=== PATIENT | female | born 1995 | race Caucasian/White ===

== ENCOUNTER → 2017-02-12 | Outpatient (CLI) | payer SELFPAY | LOC: LAB 15:22 | PROVIDERS: ATTEND Emergency Medicine | DX: J02.9 Acute pharyngitis, unspecified (principal); J35.8 Other chronic diseases of tonsils and adenoids; R30.0 Dysuria | CPT/HCPCS: 36415; 86308; 87070; 87086 ==

== ENCOUNTER 2017-02-26 17:17 | Emergency (ER) | payer OTHER ==
--- NOTE | 2017-02-26 17:48 | ER Document Report ---
ED Medical Screen (RME) - General Chief Complaint: Abdominal Pain Stated Complaint: STOMACH PAIN Time Seen by Provider: 02/26/17 17:43 Notes: This 21-year-old female patient comes emergency room complaining of bilateral pelvic pain started today. She states this is endometriosis, although she has never been diagnosed with this. She feels "100%" certain of the diagnosis because her mother had endometriosis. She does not know when her last menstrual period was, she thinks she is starting now, however there is been no bleeding yet. I have greeted and performed a rapid initial assessment of this patient. A comprehensive ED assessment and evaluation of the patient, analysis of test results and completion of the medical decision making process will be conducted by additional ED providers. TRAVEL OUTSIDE OF THE [place] IN LAST 30 DAYS: No - Related Data Allergies/Adverse Reactions: Amphetamine Aspartate * [From Adderall] Allergy (Verified 02/26/17 17:26) hives, periorbital swelling amphetamine sulfate [From Adderall] Allergy (Verified 02/26/17 17:26) hives, periorbital swelling dextroamphetamine [From Adderall] Allergy (Verified 02/26/17 17:26) hives, periorbital swelling methylphenidate HCl [From Ritalin] Allergy (Verified 02/26/17 17:26) Past Medical History Renal/ Medical History: Denies: Hx Peritoneal Dialysis Psychiatric Medical History: Reports: Hx Attention Deficit Hyperactivity Disorder - Immunizations Immunizations up to date: Yes Hx Diphtheria, Pertussis, Tetanus Vaccination: Yes Physical Exam - Vital signs Vitals: Temp Pulse Resp BP Pulse Ox 97.7 F 84 20 119/90 H 100 02/26/17 17:26 02/26/17 17:26 02/26/17 17:26 02/26/17 17:26 02/26/17 17:26 Course - Vital Signs Vital signs: Temp Pulse Resp BP Pulse Ox 97.7 F 84 20 119/90 H 100 02/26/17 17:26 02/26/17 17:26 02/26/17 17:26 02/26/17 17:26 02/26/17 17:26
[2017-02-26 18:10] LABS: AMORPHOUS SEDIMENT,URINE TRACE /HPF; APPEARANCE,URINE SLIGHTLY-CLOUDY; BILIRUBIN,URINE NEGATIVE (NEGATIVE); GLUCOSE, URINE NEGATIVE (NEGATIVE); KETONES,URINE NEGATIVE (NEGATIVE); LEUKOCYTE ESTERASE,URINE TRACE (NEGATIVE); NITRITE,URINE NEGATIVE (NEGATIVE); PROTEIN,URINE NEGATIVE (NEGATIVE)
[2017-02-26] MEDS ORDERED: KETOROLAC TROMETHAMINE INJ/PF 30 MG/1 ML SDV IM ONE (18:34)
--- NOTE | 2017-02-26 18:35 | ER Document Report ---
ED General - General Chief Complaint: Abdominal Pain Stated Complaint: STOMACH PAIN Time Seen by Provider: 02/26/17 17:43 Notes: Patient is a 21-year-old female without past medical history, no prior surgical history who presents with 24 hours of lower abdominal cramping. Patient describes it as intermittent, cramping, moderate to severe pain. Nothing improves or worsens her pain. Has been associated with nausea without vomiting. No vaginal bleeding or discharge although she states that this is typically how her menstrual cycle starts. Nothing is new or different about her pain today relative to prior menstrual cycles. She has not seen her primary care [facility] regarding today's concerns. She does not use anything to menstrual cycle. She has not had any fever or constitutional symptoms. TRAVEL OUTSIDE OF THE [place] IN LAST 30 DAYS: No - Related Data Allergies/Adverse Reactions: Amphetamine Aspartate * [From Adderall] Allergy (Verified 02/26/17 17:26) hives, periorbital swelling amphetamine sulfate [From Adderall] Allergy (Verified 02/26/17 17:26) hives, periorbital swelling dextroamphetamine [From Adderall] Allergy (Verified 02/26/17 17:26) hives, periorbital swelling methylphenidate HCl [From Ritalin] Allergy (Verified 02/26/17 17:26) Past Medical History - General Information source: Patient - Social History Smoking Status: Current Every Day Smoker Chew tobacco use (# tins/day): No Frequency of alcohol use: None Drug Abuse: Marijuana Lives with: Spouse/Significant other Family History: Arthritis, CAD, CVA, DM, Hyperlipidemia, Hypertension, Malignancy Renal/ Medical History: Denies: Hx Peritoneal Dialysis Psychiatric Medical History: Reports: Hx Attention Deficit Hyperactivity Disorder Surgical Hx: Negative - Immunizations Immunizations up to date: Yes Hx Diphtheria, Pertussis, Tetanus Vaccination: Yes Hx Pneumococcal Vaccination: 05/08/00 Review of Systems - Review of Systems Notes: Constitutional: Negative for fever. HENT: Negative for sore throat. Eyes: Negative for visual changes. Cardiovascular: Negative for chest pain. Respiratory: Negative for shortness of breath. Gastrointestinal: Positive for abdominal pain and nausea Genitourinary: Negative for dysuria. Musculoskeletal: Negative for back pain. Skin: Negative for rash. Neurological: Negative for headaches, weakness or numbness. 10 point ROS negative except as marked above and in HPI. Physical Exam - Vital signs Vitals: Temp Pulse Resp BP Pulse Ox 97.7 F 84 20 119/90 H 100 02/26/17 17:26 02/26/17 17:26 02/26/17 17:26 02/26/17 17:26 02/26/17 17:26 Interpretation: Normal Notes: PHYSICAL EXAMINATION: GENERAL: Well-appearing, well-nourished and in no acute distress. HEAD: Atraumatic, normocephalic. EYES: Pupils equal round and reactive to light, extraocular movements intact, sclera anicteric, conjunctiva are normal. ENT: nares patent, oropharynx clear without exudates. Moist mucous membranes. NECK: Normal range of motion, supple without lymphadenopathy LUNGS: Breath sounds clear to auscultation bilaterally and equal. No wheezes rales or rhonchi. HEART: Regular rate and rhythm without murmurs ABDOMEN: Soft, nontender, normoactive bowel sounds. No guarding, no rebound. No masses appreciated. EXTREMITIES: Normal range of motion, no pitting or edema. No cyanosis. NEUROLOGICAL: No focal neurological deficits. Moves all extremities spontaneously and on command. PSYCH: Normal mood, normal affect. SKIN: Warm, Dry, normal turgor, no rashes or lesions noted. Course - Re-evaluation Re-evalutation: 02/27/17 01:33 Presentation of generalized, intermittent abdominal pain starting with onset of her menstrual cycle today. Patient states that the pain is the same every single time she starts a menstrual period and it is not new or different today or during this menstrual period. Abdominal exam is benign without any focal tenderness. Vitals are normal at the time of arrival. Urinalysis unremarkable and she is not . Patient is overall very well in appearance. Based on clinical history and examination I do not suspect an acute appendicitis, tubo- ovarian abscess, related pathology, pelvic inflammatory disease, mesenteric ischemia, or pyelonephritis. At this time will discharge with return precautions and follow-up recommendations. Verbal discharge instructions given a the bedside and opportunity for questions given. Medication warnings reviewed. Patient is in agreement with this plan and has verbalized understanding of return precautions and the need for primary care follow-up in the next 24-72 hours. - Vital Signs Vital signs: Temp Pulse Resp BP Pulse Ox 97.6 F 80 20 117/82 100 02/26/17 18:49 02/26/17 18:49 02/26/17 18:49 02/26/17 18:49 02/26/17 18:49 - Laboratory Laboratory results interpreted by me: 02/26/17 02/26/17 17:57 17:57 Urine Blood LARGE H Urine Urobilinogen 2.0 H Ur Leukocyte Esterase TRACE H N.gonorrhoeae DNA (PCR) DETECTED H Discharge - Discharge Clinical Impression: Pelvic cramping Condition: Good Disposition: HOME, SELF-CARE Additional Instructions: Please follow-up with the health department or women's clinic for consideration of placement of an intrauterine device or an alternative form of control to regulate your cycle and prevent recurrent pelvic pain during your menstrual periods. Please return for worsening pain, persistent vomiting, fever greater than 101F, or any other symptoms that are worrisome to you. Referrals: DANIELLA CALLE FNP-C [Primary Care Provider] - Follow up as needed
[2017-02-26 18:52] VITALS: BP 117/82
[2017-02-26 19:45] LABS: CHLAM PCR NOT DETECTED (NOT DETECT)
== END 2017-02-26 18:50 | disposition home or self-care (01) ==
LOC: ER 17:17
DX: R10.2 Pelvic and perineal pain (principal); R10.9 Unspecified abdominal pain; R11.0 Nausea; F17.200 Nicotine dependence, unspecified, uncomplicated
CPT/HCPCS: 99284; 81025; 81001; 87491; 87591; J1885

== ENCOUNTER 2017-06-13 10:13 | Emergency (ER) | payer OTHER ==
[2017-06-13] MEDS ORDERED: NORMAL SALINE 1000 ML 1,000 ML IV ONE (10:43)
[2017-06-13] MEDS ORDERED: ACETAMINOPHEN 325 MG TABLET PO ONE (10:44)
--- NOTE | 2017-06-13 10:46 | ER Document Report ---
ED GI/ - General Chief Complaint: Abdominal Pain Stated Complaint: ABDOMINAL PAIN Time Seen by Provider: 06/13/17 10:36 Mode of Arrival: Ambulatory Information source: Patient Notes: Patient presents complaining of abdominal pain off and on. Patient is presently 7 weeks . Patient denies any nausea, vomiting or diarrhea. Patient denies any urinary symptoms. Patient denies any fever. Patient does report some mild vaginal discharge. Last bowel movement was yesterday. TRAVEL OUTSIDE OF THE [place] IN LAST 30 DAYS: No - HPI Patient complains to provider of: Abdominal pain, , Vaginal discharge. No: Vomiting Onset: This morning Timing/Duration: Waxing and waning Pain Level: 4 Location: Other - Generalized Vaginal bleeding (Compared to normal period): None Menstrual period history: Sexual history: Active Associated symptoms: Vaginal discharge. denies: Constipation, Diarrhea, Dysuria , Loss of appetite, Nausea, Shortness of breath, Urinary hesitancy, Urinary frequency, Urinary retention, Urinary urgency Exacerbated by: Denies Relieved by: Denies Recently seen / treated by doctor: No - Related Data Allergies/Adverse Reactions: Amphetamine Aspartate * [From Adderall] Allergy (Verified 06/13/17 10:13) hives, periorbital swelling amphetamine sulfate [From Adderall] Allergy (Verified 06/13/17 10:13) hives, periorbital swelling dextroamphetamine [From Adderall] Allergy (Verified 06/13/17 10:13) hives, periorbital swelling methylphenidate HCl [From Ritalin] Allergy (Verified 06/13/17 10:13) Past Medical History - General Information source: Patient Last Menstrual Period: 7 weeks - Social History Smoking Status: Current Every Day Smoker Chew tobacco use (# tins/day): No Smoking Education Provided: Yes Frequency of alcohol use: None Drug Abuse: None Occupation: None Lives with: Family Family History: Arthritis, CAD, CVA, DM, Hyperlipidemia, Hypertension, Malignancy Patient has suicidal ideation: No Patient has homicidal ideation: No Renal/ Medical History: Denies: Hx Peritoneal Dialysis Psychiatric Medical History: Reports: Hx Attention Deficit Hyperactivity Disorder Surgical Hx: Negative - Immunizations Immunizations up to date: Yes Hx Diphtheria, Pertussis, Tetanus Vaccination: Yes Hx Pneumococcal Vaccination: 05/08/00 Review of Systems - Review of Systems Constitutional: No symptoms reported. denies: Fever EENT: No symptoms reported Cardiovascular: No symptoms reported. denies: Chest pain Respiratory: No symptoms reported. denies: Cough, Short of breath Gastrointestinal: Abdominal pain. denies: Diarrhea, Nausea, Vomiting Genitourinary: No symptoms reported. denies: Dysuria, Flank pain Female Genitourinary: , Vaginal discharge. denies: Vaginal bleeding Musculoskeletal: No symptoms reported. denies: Back pain Skin: No symptoms reported Hematologic/Lymphatic: No symptoms reported Neurological/Psychological: No symptoms reported Physical Exam - Vital signs Vitals: Temp Pulse Resp BP Pulse Ox 97.8 F 100 20 118/74 98 06/13/17 10:22 06/13/17 10:22 06/13/17 10:22 06/13/17 10:22 06/13/17 10:22 - General General appearance: Appears well, Alert In distress: None - HEENT Head: Normocephalic Eyes: Normal Conjunctiva: Normal Ears: Normal External canal: Normal Tympanic membrane: Normal Nasal: Normal Mouth/Lips: Normal Mucous membranes: Normal, Dry Pharynx: Normal. No: Erythema, Tonsillar hypertrophy Neck: Normal, Supple. No: Lymphadenopathy, Meningismus - Respiratory Respiratory status: No respiratory distress Chest status: Nontender Breath sounds: Normal. No: Rales, Rhonchi, Stridor, Wheezing Chest palpation: Normal - Cardiovascular Rhythm: Regular Heart sounds: S1 appreciated, S2 appreciated Murmur: No - Abdominal Inspection: Normal Distension: No distension Bowel sounds: Normal Tenderness: Tender - Diffuse generalized tenderness, no focal area of tenderness. No: Guarding Organomegaly: No organomegaly - Back Back: Normal, Nontender. No: CVA tenderness - Extremities General upper extremity: Normal inspection, Normal strength General lower extremity: Normal inspection, Normal strength - Neurological Neuro grossly intact: Yes Cognition: Normal [place] Coma Scale Eye Opening: Spontaneous [place] Coma Scale Verbal: Oriented [place] Coma Scale Motor: Obeys Commands [place] Coma Scale Total: 15 - Psychological Associated symptoms: Normal affect, Normal mood - Skin Skin Temperature: Warm Skin Moisture: Dry Skin Color: Normal Course - Re-evaluation Re-evalutation: 06/13/17 14:25 Patient's abdomen soft, nontender. Patient states that her abdominal pain has improved. Patient without any nausea, vomiting or diarrhea. Patient without any vaginal bleeding. Patient presents with abdominal pain without signs of peritonitis or other life-threatening or serious etiology. Patient appears stable for discharge and has been instructed to return immediately if the symptoms worsen in any way, or in 8-12 hours if not improved for reevaluation. The patient has been instructed to return if the symptoms worsen or change in any way. - Vital Signs Vital signs: Temp Pulse Resp BP Pulse Ox 99 F 66 16 100/41 L 99 06/13/17 14:42 06/13/17 14:42 06/13/17 14:42 06/13/17 14:42 06/13/17 14:42 - Laboratory Result Diagrams: 06/13/17 11:08 06/13/17 11:08 Laboratory results interpreted by me: 06/13/17 06/13/17 11:08 11:08 WBC 11.5 H Eosinophils % 7.1 H Absolute Eosinophils 0.8 H Beta HCG, Quant 057558.00 H Labs- Entire Visit 06/13/17 06/13/17 06/13/17 11:08 11:08 11:08 WBC 11.5 H RBC 4.28 Hgb 13.4 Hct 40.1 MCV 94 MCH 31.3 MCHC 33.5 RDW 12.6 Plt Count 248 Seg Neutrophils % 70.0 Lymphocytes % 13.8 Monocytes % 8.6 Eosinophils % 7.1 H Basophils % 0.5 Absolute Neutrophils 8.1 Absolute Lymphocytes 1.6 Absolute Monocytes 1.0 Absolute Eosinophils 0.8 H Absolute Basophils 0.1 Sodium 138.9 Potassium 4.2 Chloride 104 Carbon Dioxide 24 Anion Gap 11 BUN 7 Creatinine 0.65 Est GFR ( Amer) > 60 Est GFR (Non-Af Amer) > 60 Glucose 77 Calcium 9.7 Total Bilirubin 0.4 Direct Bilirubin 0.1 Neonat Total Bilirubin Not Reportable Neonat Direct Bilirubin Not Reportable Neonat Indirect Bili Not Reportable AST 23 ALT 35 Alkaline Phosphatase 55 Total Protein 6.7 Albumin 4.2 Lipase 47.6 Beta HCG, Quant 561155.00 H Total Beta HCG POSITIVE Urine Color Urine Appearance Urine pH Ur Specific [place] Urine Protein Urine Glucose (UA) Urine Ketones Urine Blood Urine Nitrite Urine Bilirubin Urine Urobilinogen Ur Leukocyte Esterase Urine WBC (Auto) Urine RBC (Auto) Squamous Epi Cells Auto Urine Mucus (Auto) Urine Ascorbic Acid Trichomonas (Wet Prep) Vaginal WBC Vaginal RBC Vaginal Yeast Blood Type O POSITIVE Rhogam Indicated RHOGAM NOT INDICATED 06/13/17 06/13/17 11:52 12:49 WBC RBC Hgb Hct MCV MCH MCHC RDW Plt Count Seg Neutrophils % Lymphocytes % Monocytes % Eosinophils % Basophils % Absolute Neutrophils Absolute Lymphocytes Absolute Monocytes Absolute Eosinophils Absolute Basophils Sodium Potassium Chloride Carbon Dioxide Anion Gap BUN Creatinine Est GFR ( Amer) Est GFR (Non-Af Amer) Glucose Calcium Total Bilirubin Direct Bilirubin Neonat Total Bilirubin Neonat Direct Bilirubin Neonat Indirect Bili AST ALT Alkaline Phosphatase Total Protein Albumin Lipase Beta HCG, Quant Total Beta HCG Urine Color YELLOW Urine Appearance SLIGHTLY-CLOUDY Urine pH 7.0 Ur Specific [place] 1.017 Urine Protein NEGATIVE Urine Glucose (UA) NEGATIVE Urine Ketones NEGATIVE Urine Blood NEGATIVE Urine Nitrite NEGATIVE Urine Bilirubin NEGATIVE Urine Urobilinogen NEGATIVE Ur Leukocyte Esterase NEGATIVE Urine WBC (Auto) 2 Urine RBC (Auto) 1 Squamous Epi Cells Auto 2 Urine Mucus (Auto) RARE Urine Ascorbic Acid NEGATIVE Trichomonas (Wet Prep) NO TRICHOMONAS SEEN Vaginal WBC NO WBCS SEEN Vaginal RBC NO RBCS SEEN Vaginal Yeast NO YEAST SEEN Blood Type Rhogam Indicated - Diagnostic Test Radiology reviewed: Reports reviewed Discharge - Discharge Clinical Impression: Abdominal pain affecting Condition: Stable Disposition: HOME, SELF-CARE Instructions: Acetaminophen, Pelvic Pain in ([facility]) Additional Instructions: Return immediately for any new or worsening symptoms Followup with your primary care provider, call tomorrow to make a followup appointment Follow-up with your [facility] provider for recheck Forms: Smoking Cessation Education, Return to Work Referrals: [facility] [Provider Group] - Follow up tomorrow
[2017-06-13 11:26] LABS: ABSOLUTE BASOPHILS # (AUTO) 0.1 10^3/uL (0.0-0.2); ABSOLUTE EOSINOPHILS # (AUTO) 0.8 10^3/uL (0.0-0.6); ABSOLUTE LYMPHOCYTES (AUTO) 1.6 10^3/uL (0.5-4.7); ABSOLUTE NEUT (AUTO) 8.1 10^3/uL (1.7-8.2); BASOPHILS % (AUTO) 0.5 % (0-2); EOSINOPHILS % (AUTO) 7.1 % (0-6); HEMATOCRIT 40.1 % (36.0-47.0); HEMOGLOBIN 13.4 g/dL (12.0-15.5); LYMPHOCYTES % (AUTO) 13.8 % (13-45); MEAN CORPUSCULAR HEMOGLOBIN 31.3 pg (27.0-33.4); MEAN CORPUSCULAR HGB CONC 33.5 g/dL (32.0-36.0); MEAN CORPUSCULAR VOLUME 94 fl (80-97); MONOCYTES % (AUTO) 8.6 % (3-13); PLATELET COUNT 248 10^3/uL (150-450); RED BLOOD COUNT 4.28 10^6/uL (3.72-5.28); RED CELL DISTRIBUTION WIDTH 12.6 % (11.5-14.0); TOTAL CELLS COUNTED % (AUTO) 100 %; WHITE BLOOD COUNT 11.5 10^3/uL (4.0-10.5)
[2017-06-13 11:53] LABS: ALANINE AMINOTRANSFERASE 35 U/L (9-52); ALBUMIN 4.2 g/dL (3.5-5.0); ALKALINE PHOSPHATASE 55 U/L (38-126); ANION GAP 11 (5-19); ASPARTATE AMINO TRANSFERASE 23 U/L (14-36); BILIRUBIN,DIRECT 0.1 mg/dL (0.0-0.4); BILIRUBIN,TOTAL 0.4 mg/dL (0.2-1.3); BLOOD UREA NITROGEN 7 mg/dL (7-20); CALCIUM 9.7 mg/dL (8.4-10.2); CARBON DIOXIDE 24 mmol/L (22-30); CHLORIDE 104 mmol/L (98-107); GLUCOSE 77 mg/dL (75-110); LIPASE 47.6 U/L (23-300); POTASSIUM 4.2 mmol/L (3.6-5.0); SODIUM 138.9 mmol/L (137-145); TOTAL PROTEIN 6.7 g/dL (6.3-8.2)
[2017-06-13 12:08] LABS: APPEARANCE,URINE SLIGHTLY-CLOUDY; BILIRUBIN,URINE NEGATIVE (NEGATIVE); COLOR,URINE YELLOW; GLUCOSE, URINE NEGATIVE (NEGATIVE); KETONES,URINE NEGATIVE (NEGATIVE); LEUKOCYTE ESTERASE,URINE NEGATIVE (NEGATIVE); NITRITE,URINE NEGATIVE (NEGATIVE); PROTEIN,URINE NEGATIVE (NEGATIVE); URINE SPECIFIC GRAVITY 1.017; UROBILINOGEN,URINE NEGATIVE mg/dL (<2.0)
--- NOTE | 2017-06-13 12:37 | RADIOLOGY REPORT (SQ) ---
EXAM DESCRIPTION: U/S OB TRANSVAG W/DOPPLER COMPLETED DATE/TIME: 06/13/2017 12:28 pm REASON FOR STUDY: abd pain COMPARISON: None. TECHNIQUE: Transvaginal static and realtime grayscale images acquired of the pelvis. Additional servando cted spectral and color Doppler images recorded. All images stored on PACs. bHCG: Not available. LIMITATIONS: None. FINDINGS: FETUS: Living intrauterine . EGA: 7 weeks 5 days ARMAND: 01/25/2018 FHR: 1 and 71 beats per minute. SUBCHORIONIC BLEED: No. SIZE OF BLEED: Not applicable. UTERUS: No masses. No anomalies. CERVICAL LENGTH: 3.8 Closed. RIGHT ADNEXA: Normal ovary with normal vascular flow. No adnexal free fluid. No adnexal masses. LEFT ADNEXA: Normal ovary with normal vascular flow. No adnexal free fluid. No adnexal masses. FREE FLUID: None. OTHER: No other significant finding. IMPRESSION: LIVING INTRAUTERINE . EGA 7 weeks 5 days Trimester of : First - 0 to 13 weeks. TECHNICAL DOCUMENTATION: JOB ID: [id number] [employer]- All Rights Reserved
[2017-06-13 13:00] LABS: RBCS (WET MOUNT) NO RBCS SEEN; T.VAGINALIS (WET MOUNT) NO TRICHOMONAS SEEN; WBCS (WET MOUNT) NO WBCS SEEN; YEAST (WET MOUNT) NO YEAST SEEN
[2017-06-13 14:31] LABS: CHLAM PCR NOT DETECTED (NOT DETECT); GON PCR NOT DETECTED (NOT DETECT)
[2017-06-13 14:44] VITALS: BP 100/41
== END 2017-06-13 14:42 | disposition home or self-care (01) ==
LOC: ER 10:13
DX: O26.891 Other specified pregnancy related conditions, first trimester (principal); R10.84 Generalized abdominal pain; N89.8 Other specified noninflammatory disorders of vagina; O99.331 Smoking (tobacco) complicating pregnancy, first trimester; Z3A.01 Less than 8 weeks gestation of pregnancy; Z88.8 Allergy status to other drugs, medicaments and biological substances; Z88.6 Allergy status to analgesic agent
CPT/HCPCS: 99284; 96360; 86900; 86901; 36415; 87210; 84702; 83690; 85025; 80053; 81001; 87491; 87591; 76817; 93976; J7030

== ENCOUNTER 2017-07-31 01:00 | Emergency (ER) | payer OTHER ==
[2017-07-31] MEDS ORDERED: NORMAL SALINE 1000 ML 1,000 ML IV ONE (01:10)
--- NOTE | 2017-07-31 02:15 | ER Document Report ---
ED General - General Chief Complaint: Flu Symptoms Stated Complaint: SORE THROAT Time Seen by Provider: 07/31/17 01:10 Notes: Patient is a 21 year old female currently 15 weeks without past medical history who presents with 2 days of sore throat, cough, nasal congestion , fever, and vomiting. Patient reports that she has been taking Tylenol at home with minimal improvement of her symptoms. Nothing worsens her symptoms. Multiple sick contacts. She has not had any diarrhea, vaginal bleeding, vaginal discharge or dysuria. No flank tenderness. She denies any shortness of breath and headache, neck pain or syncope. She has not seen her primary care doctor regarding today's concerns. Symptoms have been overall unchanged since onset. TRAVEL OUTSIDE OF THE [place] IN LAST 30 DAYS: No - Related Data Allergies/Adverse Reactions: Amphetamine Aspartate * [From Adderall] Allergy (Verified 07/31/17 01:02) hives, periorbital swelling amphetamine sulfate [From Adderall] Allergy (Verified 07/31/17 01:02) hives, periorbital swelling dextroamphetamine [From Adderall] Allergy (Verified 07/31/17 01:02) hives, periorbital swelling methylphenidate HCl [From Ritalin] Allergy (Verified 07/31/17 01:02) Past Medical History - General Information source: Patient - Social History Smoking Status: Never Smoker Chew tobacco use (# tins/day): No Frequency of alcohol use: None Drug Abuse: None Lives with: Parents Family History: Arthritis, CAD, CVA, DM, Hyperlipidemia, Hypertension, Malignancy Patient has suicidal ideation: No Patient has homicidal ideation: No Renal/ Medical History: Denies: Hx Peritoneal Dialysis Psychiatric Medical History: Reports: Hx Attention Deficit Hyperactivity Disorder - Immunizations Immunizations up to date: Yes Hx Diphtheria, Pertussis, Tetanus Vaccination: Yes Hx Pneumococcal Vaccination: 05/08/00 Review of Systems - Review of Systems Notes: Constitutional: Positive for fever. HENT: Positive for sore throat. Eyes: Negative for visual changes. Cardiovascular: Negative for chest pain. Respiratory: Positive for cough Gastrointestinal: Negative for abdominal pain, positive for vomiting Genitourinary: Negative for dysuria. Musculoskeletal: Negative for back pain. Skin: Negative for rash. Neurological: Negative for headaches, weakness or numbness. 10 point ROS negative except as marked above and in HPI. Physical Exam - Vital signs Vitals: Temp Pulse BP Pulse Ox 98.2 F 120 H 104/59 L 97 07/31/17 01:04 07/31/17 01:04 07/31/17 01:04 07/31/17 01:04 Interpretation: Tachycardic Notes: PHYSICAL EXAMINATION: GENERAL: Well-appearing, well-nourished and in no acute distress. HEAD: Atraumatic, normocephalic. EYES: Pupils equal round and reactive to light, extraocular movements intact, sclera anicteric, conjunctiva are normal. ENT: nares patent, mild bilateral tonsillar erythema and hypertrophy. Uvula midline. No tonsillar exudates. Moderately dry mucous membranes. NECK: Normal range of motion, supple without lymphadenopathy LUNGS: Breath sounds clear to auscultation bilaterally and equal. No wheezes rales or rhonchi. HEART: Regular tachycardia without murmurs ABDOMEN: Soft, nontender, normoactive bowel sounds. No guarding, no rebound. No masses appreciated. EXTREMITIES: Normal range of motion, no pitting or edema. No cyanosis. NEUROLOGICAL: No focal neurological deficits. Moves all extremities spontaneously and on command. PSYCH: Normal mood, normal affect. SKIN: Warm, Dry, normal turgor, no rashes or lesions noted. Course - Re-evaluation Re-evalutation: 07/31/17 02:14 Patient presents with cough, vomiting, diarrhea, and fever at home consistent with a flulike illness although we are unable to confirm with the testing due to lack of availability. Clinical history and exam is not consistent with an acute bacterial meningitis, encephalitis, pneumonia, there is no evidence of a cellulitis on examination. Patient likewise denies any urinary symptoms. Chest x-ray is clear without any evidence of an acute pneumonia. Patient does not have any focal abdominal tenderness to suggest an acute biliary pathology, acute appendicitis, acute mesenteric ischemia, bowel obstruction, bowel, or any other life-threatening acute intra-abdominal pathology as the etiology of the fever and additional symptoms today. Patient is currently but denies any vaginal bleeding or discharge. Labs are otherwise unremarkable. Patient is tolerated oral intake without difficulty. Vitals at time of reassessment are within normal limits. I have had a risks and benefits conversation with the patient and her mother about proceeding with Tamiflu. After reviewing the limited efficacy of this medication as well as the side effect profile, the patient and her mother have elected not to proceed with this medication. At this time will discharge with return precautions and follow-up recommendations. Verbal discharge instructions given a the bedside and opportunity for questions given. Medication warnings reviewed. Patient is in agreement with this plan and has verbalized understanding of return precautions and the need for primary care follow-up in the next 24-72 hours. - Vital Signs Vital signs: Temp Pulse Resp BP Pulse Ox 98.2 F 120 H 104/59 L 97 07/31/17 01:04 07/31/17 01:04 07/31/17 01:04 07/31/17 01:04 - Laboratory Result Diagrams: 07/31/17 02:30 07/31/17 02:30 Laboratory results interpreted by me: 07/31/17 02:30 RBC 3.39 L Hgb 11.0 L Hct 32.2 L Lymphocytes % 7.4 L - Diagnostic Test Radiology reviewed: Image reviewed, Reports reviewed Radiology results interpreted by me: 07/31/17 02:57 Chest x-ray: No acute infiltrate pneumothorax Discharge - Discharge Clinical Impression: Cough, Sore throat (viral), Viral upper respiratory infection Nausea and vomiting Qualifiers: Vomiting type: unspecified Vomiting Intractability: non-intractable Qualified Code(s): R11.2 - Nausea with vomiting, unspecified Condition: Good Disposition: HOME, SELF-CARE Additional Instructions: Your symptoms are likely due to a viral infection either influenza or similar virus. The only treatment at this time is supportive care including drinking plenty of fluids, Tylenol, as well as nausea medicines which you will be sent home with. Your symptoms will likely last for 7-10 days. Please return to the emergency department immediately if you become confused, have persistent vomiting, pass out, have severe headache, or have any other symptoms that are worrisome to you. Follow-up with your primary care doctor in the next several days. Prescriptions: Dextromethorphan HBr [Cough Relief] 15 mg PO Q6HP PRN #30 ml PRN Reason: Metoclopramide HCl [Reglan 10 mg Tablet] 10 mg PO Q6HP PRN #15 tablet PRN Reason: Referrals: ARLENE MEDINA MD [Primary Care Provider] - Follow up as needed
[2017-07-31 02:42] LABS: ABSOLUTE EOSINOPHILS # (AUTO) 0.1 10^3/uL (0.0-0.6); ABSOLUTE LYMPHOCYTES (AUTO) 0.5 10^3/uL (0.5-4.7); ABSOLUTE MONOCYTES (AUTO) 0.8 10^3/uL (0.1-1.4); BASOPHILS % (AUTO) 0.3 % (0-2); EOSINOPHILS % (AUTO) 1.8 % (0-6); HEMATOCRIT 32.2 % (36.0-47.0); LYMPHOCYTES % (AUTO) 7.4 % (13-45); MEAN CORPUSCULAR HEMOGLOBIN 32.3 pg (27.0-33.4); MEAN CORPUSCULAR VOLUME 95 fl (80-97); MONOCYTES % (AUTO) 12.9 % (3-13); PLATELET COUNT 182 10^3/uL (150-450); RED BLOOD COUNT 3.39 10^6/uL (3.72-5.28); RED CELL DISTRIBUTION WIDTH 13.7 % (11.5-14.0); SEGMENTED NEUTROPHILS % (AUTO) 77.6 % (42-78); TOTAL CELLS COUNTED % (AUTO) 100 %; WHITE BLOOD COUNT 6.4 10^3/uL (4.0-10.5)
--- NOTE | 2017-07-31 02:54 | RADIOLOGY REPORT (SQ) ---
EXAM DESCRIPTION: CHEST SINGLE VIEW CLINICAL HISTORY: sob COMPARISON: None. FINDINGS: Single frontal view of the chest. The cardiomediastinal silhouette has normal size and contour. No consolidation, pneumothorax, or pleural effusion. No displaced rib fractures identified. Upper abdominal soft tissues are unremarkable. IMPRESSION: 1. No acute pulmonary process identified.
[2017-07-31] MEDS ORDERED: ACETAMINOPHEN 325 MG TABLET PO ONE (02:55)
[2017-07-31 03:10] VITALS: BP 112/70
== END 2017-07-31 03:15 | disposition home or self-care (01) ==
LOC: ER 01:00
DX: O26.892 Other specified pregnancy related conditions, second trimester (principal); J02.9 Acute pharyngitis, unspecified; R05 Cough; R09.81 Nasal congestion; R50.9 Fever, unspecified; R11.10 Vomiting, unspecified; Z3A.15 15 weeks gestation of pregnancy
CPT/HCPCS: 99284; 96360; 36415; 87070; 87880; 85025; 71045; J7030

== ENCOUNTER 2017-09-25 22:38 | Outpatient (CLI) | payer OTHER ==
[2017-09-25 23:19] LABS: APPEARANCE,URINE CLEAR; BILIRUBIN,URINE NEGATIVE (NEGATIVE); COLOR,URINE YELLOW; GLUCOSE, URINE NEGATIVE (NEGATIVE); KETONES,URINE NEGATIVE (NEGATIVE); LEUKOCYTE ESTERASE,URINE NEGATIVE (NEGATIVE); NITRITE,URINE NEGATIVE (NEGATIVE); PROTEIN,URINE NEGATIVE (NEGATIVE); URINE SPECIFIC GRAVITY 1.011; UROBILINOGEN,URINE NEGATIVE mg/dL (<2.0)
[2017-09-25 23:33] LABS: URINE AMPHETAMINES SCREEN NEGATIVE; URINE BARBITURATES SCREEN NEGATIVE; URINE BENZODIAZEPINES SCREEN NEGATIVE; URINE COCAINE SCREEN NEGATIVE; URINE METHADONE SCREEN NEGATIVE; URINE PHENCYCLIDINE SCREEN NEGATIVE
[2017-09-25 23:56] LABS: URINE MARIJUANA (THC) SCREEN UNCONFIRMED POSITIVE
[2017-09-26] MEDS ORDERED: HYDROXYZINE PAMOATE 50 MG CAPSULE ONE (00:20)
[2017-09-26] MEDS ORDERED: RINGERS SOLUTION,LACTATED 1,000 ML IV PRN (00:24)
== END 2017-09-26 01:16 | disposition home or self-care (01) ==
LOC: LC 22:38 → EDSTATUS 22:43 → LC 09-26 01:16
PROVIDERS: ATTEND Obstetrics & Gynecology
PROC: 4A1HXCZ Monitoring of Products of Conception, Cardiac Rate, External Approach (ICD-10-PCS; principal; 2017-09-25)
DX: O47.02 False labor before 37 completed weeks of gestation, second trimester (principal); Z3A.22 22 weeks gestation of pregnancy
CPT/HCPCS: 59899; 81001; 80307; G0480 ×2

== ENCOUNTER 2018-01-06 21:23 | Outpatient (CLI) | payer OTHER ==
[2018-01-06 22:07] LABS: APPEARANCE,URINE CLEAR; BILIRUBIN,URINE NEGATIVE (NEGATIVE); COLOR,URINE STRAW; GLUCOSE, URINE NEGATIVE (NEGATIVE); KETONES,URINE NEGATIVE (NEGATIVE); LEUKOCYTE ESTERASE,URINE TRACE (NEGATIVE); NITRITE,URINE NEGATIVE (NEGATIVE); PROTEIN,URINE NEGATIVE (NEGATIVE); URINE SPECIFIC GRAVITY 1.011; UROBILINOGEN,URINE NEGATIVE mg/dL (<2.0)
[2018-01-06 22:30] LABS: URINE AMPHETAMINES SCREEN NEGATIVE; URINE BARBITURATES SCREEN NEGATIVE; URINE BENZODIAZEPINES SCREEN NEGATIVE; URINE COCAINE SCREEN NEGATIVE; URINE MARIJUANA (THC) SCREEN NEGATIVE; URINE METHADONE SCREEN NEGATIVE; URINE PHENCYCLIDINE SCREEN NEGATIVE
--- NOTE | 2018-01-06 23:03 | Non Stress Test Report ---
Non Stress Test Datetime Report Generated by CPN: 01/06/2018 23:03 DEMOGRAPHIC EGA NST: 37.3 INDICATION Indication for Study (NST) Other: LC URINE RESULTS Urine Protein, NST: Negative Urine Ketones - NST: Negative Urine Glucose - NST: Negative Urine Blood - NST: Negative MONITORING Monitor Explained: Monitor Explained; Test Explained; Patient Verbalized Understanding Time on Monitor: 01/06/2018 21:42 Time off Monitor: 01/06/2018 22:48 NST Duration: 66 NST INTERVENTIONS NST Interventions: PO Hydration; Reposition Patient; Other NST Interventions Other: popsicle BABY A: [id number] BABY A Movement : Present Contraction Frequency : 1-6 FHR Baseline : 130 Accelerations : 15X15 Variability : Moderate 6-25bpm NST Review: Meets Criteria for Reactive NST NST Review and Verified By : Emily Townsend RN NST Results: Reactive NST REPORT Report Trigger: Send Report
== END 2018-01-06 22:55 | disposition home or self-care (01) ==
LOC: LC 21:23
PROVIDERS: ATTEND Obstetrics & Gynecology
PROC: 4A1HXCZ Monitoring of Products of Conception, Cardiac Rate, External Approach (ICD-10-PCS; principal; 2018-01-06)
DX: O47.1 False labor at or after 37 completed weeks of gestation (principal); Z3A.37 37 weeks gestation of pregnancy
CPT/HCPCS: 59025; 80307; 81001

== ENCOUNTER 2018-01-16 18:56 | Outpatient (CLI) | payer OTHER ==
--- NOTE | 2018-01-16 19:20 | Non Stress Test Report ---
Non Stress Test Datetime Report Generated by CPN: 01/16/2018 19:19 DEMOGRAPHIC EGA NST: 37.6 INDICATION Indication for Study: Ordered by Provider MONITORING Monitor Explained: Monitor Explained; Test Explained; Patient Verbalized Understanding Time on Monitor: 01/09/2018 13:54 Time off Monitor: 01/09/2018 14:20 NST Duration: 26 NST INTERVENTIONS NST Interventions: None Physician Notified NST: N. Chambers, CNM BABY A: [id number] BABY A Movement : Present Contraction Frequency : irritability FHR Baseline : 125 Accelerations : 15X15 Decelerations : None Variability : Moderate 6-25bpm NST Review: Meets Criteria for Reactive NST NST Review and Verified By : IAN ORTEGA RN NST Results: Reactive NST REPORT Report Trigger: Send Report
[2018-01-16 19:36] LABS: APPEARANCE,URINE CLEAR; BILIRUBIN,URINE NEGATIVE (NEGATIVE); COLOR,URINE STRAW; GLUCOSE, URINE NEGATIVE (NEGATIVE); KETONES,URINE NEGATIVE (NEGATIVE); LEUKOCYTE ESTERASE,URINE TRACE (NEGATIVE); NITRITE,URINE NEGATIVE (NEGATIVE); PROTEIN,URINE NEGATIVE (NEGATIVE); URINE SPECIFIC GRAVITY 1.006; UROBILINOGEN,URINE NEGATIVE mg/dL (<2.0)
[2018-01-16 19:54] LABS: URINE AMPHETAMINES SCREEN NEGATIVE; URINE BARBITURATES SCREEN NEGATIVE; URINE BENZODIAZEPINES SCREEN NEGATIVE; URINE COCAINE SCREEN NEGATIVE; URINE METHADONE SCREEN NEGATIVE; URINE PHENCYCLIDINE SCREEN NEGATIVE
[2018-01-16 20:01] LABS: URINE MARIJUANA (THC) SCREEN UNCONFIRMED POSITIVE
--- NOTE | 2018-01-16 20:56 | Non Stress Test Report ---
Non Stress Test Datetime Report Generated by CPN: 01/16/2018 20:56 DEMOGRAPHIC Test Number: 4 EGA NST: 38.6 INDICATION Indication for Study: Ordered by Provider Indication for Study (NST) Other: LC VITAL SIGNS Temperature - NST: 98.6 URINE RESULTS Urine Protein, NST: Negative Urine Ketones - NST: Negative Urine Glucose - NST: Negative Urine Blood - NST: Negative MONITORING Monitor Explained: Monitor Explained; Test Explained; Patient Verbalized Understanding Time on Monitor: 01/16/2018 19:20 Time off Monitor: 01/16/2018 20:41 NST Duration: 81 NST INTERVENTIONS NST Interventions: PO Hydration Physician Notified NST: Gardner BABY A Movement : Present Contraction Frequency : 4-6 FHR Baseline : 120 Accelerations : 15X15 Decelerations : None Variability : Moderate 6-25bpm NST Review: Meets Criteria for Reactive NST NST Review and Verified By : SAzar Díaz, RNC NST Results: Reactive NST REPORT Report Trigger: Send Report
== END 2018-01-16 20:48 | disposition home or self-care (01) ==
LOC: LC 18:56
PROVIDERS: ATTEND Student in an Organized Health Care Education/Training Program
PROC: 4A1HXCZ Monitoring of Products of Conception, Cardiac Rate, External Approach (ICD-10-PCS; principal; 2018-01-16)
DX: O47.1 False labor at or after 37 completed weeks of gestation (principal); Z3A.38 38 weeks gestation of pregnancy
CPT/HCPCS: 59025; 81005; 80307; G0480 ×2; 80349

== ENCOUNTER 2018-01-17 05:41 | Inpatient (IN) | payer OTHER ==
[2018-01-17] MEDS ORDERED: RINGERS SOLUTION,LACTATED 1,000 ML IV PRN (06:23)
[2018-01-17 06:25] LABS: APPEARANCE,URINE CLOUDY; BILIRUBIN,URINE NEGATIVE (NEGATIVE); COLOR,URINE YELLOW; GLUCOSE, URINE NEGATIVE (NEGATIVE); KETONES,URINE NEGATIVE (NEGATIVE); LEUKOCYTE ESTERASE,URINE TRACE (NEGATIVE); NITRITE,URINE NEGATIVE (NEGATIVE); PROTEIN,URINE NEGATIVE (NEGATIVE); URINE SPECIFIC GRAVITY 1.017
[2018-01-17] MEDS ORDERED: LIDOCAINE 1% INJ-PF (10 MG/ML) 30 ML SDV ONE (06:38)
[2018-01-17] MEDS ORDERED: MISOPROSTOL 0.2 MG TABLET ONE (06:38)
[2018-01-17] MEDS ORDERED: OXYTOCIN/NORMAL SALINE 20 UNIT/1,000 ML RTUINJ ONE (06:38)
[2018-01-17] MEDS ORDERED: RINGERS SOLUTION,LACTATED 1,000 ML IV ONE (06:40)
[2018-01-17 06:41] LABS: URINE AMPHETAMINES SCREEN NEGATIVE; URINE BARBITURATES SCREEN NEGATIVE; URINE BENZODIAZEPINES SCREEN NEGATIVE; URINE COCAINE SCREEN NEGATIVE; URINE METHADONE SCREEN NEGATIVE; URINE PHENCYCLIDINE SCREEN NEGATIVE
[2018-01-17 06:46] LABS: URINE MARIJUANA (THC) SCREEN UNCONFIRMED POSITIVE
--- NOTE | 2018-01-17 06:51 | Admission Physical ---
Datetime Report Generated by CPN: 01/17/2018 06:50 CURRENT ADMISSION Chief Complaint: Uterine Contractions; Suspected Ruptured Membranes Indication for Induction: PROM Admit Impression : Term, Intrauterine ; Active Labor; Ruptured Membranes; Induction of Labor Admit Impression- Other: now possible early active labor Admit Plan: Admit to Unit; Initiate Labor Induction Protocol ALLERGIES Medication Allergies: Yes Medication Allergies: [place] And Derivatives/UT (01/17/2018); diphenhydramine/SV/Hives (01/17/2018) Latex: No Latex Allergies OBSTETRICAL HISTORY EDC: 01/24/2018 00:00 : 2 Para: 0 Term: 0 : 0 SAB: 1 IAB: 0 Ectopic: 0 Livin Cesareans: 0 VBACs: 0 Multiple Births: 0 Gestational Diabetes: No Rh Sensitization: No Incompetent Cervix: No ZO: No Infertility: No ART Treatment: No Uterine Anomaly: No IUGR: No Hx Previous C/S: No Macrosomia: No Hx Loss/Stillborn: No PIH: No Hx : No Placenta Previa/Abruption: No Depression/PP Depression: No PTL/PROM: No Post Hemorrhage: No Current Procedures: Ultrasound Obstetrical History Comments: G1: 01/2017 SAB G2- current SEE RECORDS Alcohol: No Marijuana : Yes Marijuana Comments: positive this , smokes for nausea Cocaine: No Other Illicit Drugs: No Cigarettes: Current Everyday Smoker. 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), asthma- uses proair as needed multiple tiems a week INFECTIOUS HISTORY Gonorrhea: Yes Genital Herpes: No Chlamydia: No Tuberculosis: No Syphilis: No Hepatitis: No HIV/AIDS Exposure: No Rash or Viral Illness: No HPV: No Infectious History Comments: Gonorrhea PHYSICAL EXAM General: Normal HEENT: Normal Neurologic: Normal Thyroid: Deferred Heart: Normal Lungs: Normal Breast: Deferred Back: Normal Abdomen: Normal Genitourinary Exam: Normal Extremities: Normal DTRs: Normal Pelvic Type: Adequate Vital Signs: Reviewed VAGINAL EXAM Dilatation: 3 Effacement: 90 Station: -2 Contraction Comments: q 3-4 MEMBRANES Membranes: Intact FETUS A EGA: 39.0 Monitoring: External US FHR- Baseline: 150 Variability: Moderate 6-25bpm Accelerations: 15X15 Decelerations: None FHR Category: Category I Presentation: Vertex Admit Comment: 22yo at 39+0ega presents for suspected PROM at approx 0500. She is actively harika now and cvx with change noted from last evening. GBS negative. APpears to be in early labor. WIll augment with pitocin if needed. H/o ADHD, asthma. SMoker - decreasing. [facility] reported to [facility] pt pos for THC and cocoaine there. 09/2017 at [facility] pos THC. Will get production planner. Anticipate . PLANS FOR LABOR AND DELIVERY Labor and Delivery: None Pain Management: Epidural Feeding Preference: Breast Benefit of Breast Feed Discussed: Yes Circumcision: N/A INFORMED CONSENT Informed Consent Obtained: Vaginal Delivery; Induction of Labor; Risks, Benefits and Alternatives Discussed Signature: with User ID: [email or web address]
[2018-01-17 06:56] LABS: ABSOLUTE EOSINOPHILS # (AUTO) 0.6 10^3/uL (0.0-0.6); ABSOLUTE LYMPHOCYTES (AUTO) 2.6 10^3/uL (0.5-4.7); ABSOLUTE MONOCYTES (AUTO) 1.4 10^3/uL (0.1-1.4); ABSOLUTE NEUT (AUTO) 9.1 10^3/uL (1.7-8.2); BASOPHILS % (AUTO) 0.2 % (0-2); EOSINOPHILS % (AUTO) 4.1 % (0-6); HEMATOCRIT 28.7 % (36.0-47.0); HEMOGLOBIN 9.6 g/dL (12.0-15.5); LYMPHOCYTES % (AUTO) 19.4 % (13-45); MEAN CORPUSCULAR HEMOGLOBIN 29.8 pg (27.0-33.4); MEAN CORPUSCULAR HGB CONC 33.3 g/dL (32.0-36.0); MEAN CORPUSCULAR VOLUME 90 fl (80-97); MONOCYTES % (AUTO) 9.9 % (3-13); PLATELET COUNT 224 10^3/uL (150-450); RED CELL DISTRIBUTION WIDTH 14.6 % (11.5-14.0); SEGMENTED NEUTROPHILS % (AUTO) 66.4 % (42-78); TOTAL CELLS COUNTED % (AUTO) 100 %; WHITE BLOOD COUNT 13.7 10^3/uL (4.0-10.5)
[2018-01-17] MEDS ORDERED: FENTANYL CITRATE INJ/PF 100 MCG/2 ML AMPUL ONE (08:02)
[2018-01-17] MEDS ORDERED: PHENYLEPHRINE HCL INJ/PF 10 MG/1 ML SDV ONE (08:02)
[2018-01-17] MEDS ORDERED: FENTANYL/BUPIVACAINE/NS/PF 300 MCG/150 ML RTUINJ EPI ONE (08:03)
[2018-01-17] MEDS ORDERED: EPHEDRINE SULFATE INJ 50 MG/1 ML AMPULE ONE (08:03)
[2018-01-17] MEDS ORDERED: BUPIVACAINE HCL 0.5 % INJ/PF 30 ML SDV ONE (08:04)
--- NOTE | 2018-01-17 10:50 | L&D Progress Notes ---
PROGRESS NOTES Datetime Report Generated by CPN: 01/17/2018 10:49 PROGRESS NOTE Impression: Reassuring Heart Rate Plan: Continue Present Management; Induction Informed Consent Obtained: Vaginal Delivery; Induction of Labor; Risks, Benefits and Alternatives Discussed Vital Signs : Reviewed; Within Normal Limits Comment: Cat 1 strip, comfortable with epidural, irreg uc's Contnue to monitor VAGINAL EXAM Dilatation: 3 Effacement: 90 Station: -2 Contractions: q 3-4 FETUS A Presentation: Vertex SIGNATURE SIGNATURE: [id number];[id number];13,[id number] SIGNATURE: 13,[id number];[id number];10,[id number] SIGNATURE: 10,[id number];14,[id number] SIGNATURE: 14,[id number];10,[id number] Assignment: Nikita Catalan MD Signature: with User ID: Theresa : with User ID: Theresa
[2018-01-17] MEDS ORDERED: MORPHINE SULFATE 10 MG/ML INJ IV PRN (12:20)
[2018-01-17] MEDS ORDERED: ONDANSETRON HCL INJ/PF 4 MG/2 ML SDV IV PRN (12:20)
[2018-01-17] MEDS ORDERED: DIPHENHYDRAMINE HCL 50 MG/ML VIAL IV PRN (12:20)
[2018-01-17] MEDS ORDERED: PROMETHAZINE HCL INJ 25 MG/1 ML VIAL IV PRN ×2 (12:20→12:44)
[2018-01-17] MEDS ORDERED: FENTANYL CITRATE INJ/PF 100 MCG/2 ML AMPUL IV PRN ×3 (12:20)
[2018-01-17] MEDS ORDERED: MEPERIDINE HCL/PF INJ 25 MG/1 ML DISP.SYRIN IV PRN (12:20)
[2018-01-17] MEDS ORDERED: DIPH/PERTUSS(ACELL)/TETANUS VAC/PF 0.5 ML SYR (>=10YO) IM PRN (12:44)
[2018-01-17] MEDS ORDERED: GLYCERIN/WITCH HAZEL LEAF 1 EACH MED..PAD TP PRN (12:44)
[2018-01-17] MEDS ORDERED: MAGNESIUM HYDROXIDE SUSP 30 ML UDCUP PO PRN (12:44)
[2018-01-17] MEDS ORDERED: MEASLES,MUMPS&RUBELLA VACC/PF 0.5 ML VIAL SUBCUT PRN (12:44)
[2018-01-17] MEDS ORDERED: ACETAMINOPHEN 650 MG SUPP.RECT PR PRN (12:44)
[2018-01-17] MEDS ORDERED: ZOLPIDEM TARTRATE 5 MG TABLET PO PRN (12:44)
[2018-01-17] MEDS ORDERED: DIPHENHYDRAMINE HCL 25 MG CAPSULE PO PRN (12:44)
[2018-01-17] MEDS ORDERED: ACETAMINOPHEN WITH CODEINE #3 TABLET PO PRN ×2 (12:44)
[2018-01-17] MEDS ORDERED: BENZOCAINE/MENTHOL AEROSOL SPRAY 56 ML TOP PRN (12:44)
[2018-01-17] MEDS ORDERED: NA PHOS,M-B/NA PHOS,DI-BA (ADULT) 133 ML ENEMA PR PRN (12:44)
[2018-01-17] MEDS ORDERED: PROMETHAZINE HCL 25 MG SUPP.RECT PR PRN (12:44)
[2018-01-17] MEDS ORDERED: PSEUDOEPHEDRINE HCL 30 MG TABLET PO PRN (12:44)
[2018-01-17] MEDS ORDERED: OXYTOCIN/NORMAL SALINE 20 UNIT/1,000 ML RTUINJ IV PRN (12:44)
[2018-01-17] MEDS ORDERED: DIBUCAINE 1% OINTMENT 28 GM TP PRN (12:44)
[2018-01-17] MEDS ORDERED: PROMETHAZINE HCL 25 MG TABLET PO PRN (12:44)
[2018-01-17] MEDS ORDERED: IBUPROFEN 800 MG TABLET ONE (14:18)
[2018-01-17] MEDS: IBUPROFEN 800 MG TABLET PO SCH ×2 (14:19→21:17)
--- NOTE | 2018-01-17 14:43 | Warning Signs in Babies ---
VOD Warning Signs Datetime Report Generated by [facility]: 01/17/2018 14:43 VOD#608 -Warning Signs in Babies: Viewed with Parent(s)/Family (09/25/2017 22:45:Marilee Bright RN)
--- NOTE | 2018-01-17 15:08 | Delivery Summary ---
Del Sum A-C Datetime Report Generated by CPN: 01/17/2018 15:07 DELIVERY PERSONNEL DELIVERY PERSONNEL: [id number] Delivery Doctor:: Janie Altamirano CNM Labor and Delivery Nurse:: Marilee Bright RNenamel shader Nurse:: Rosemary Escobar RN Back Seam Stitcher/AMMONIUM NITRATE NEUTRALIZER: Michelle Bartlett, AMMONIUM NITRATE NEUTRALIZER II MATERNAL INFORMATION Delivery Anesthesia: Epidural Medications After Delivery: Pitocin Bolus-Please Comment; Cytotec 1000mcg Per Rectum/Vagina Meds After Delivery Comment: pitocin 20 units in 1 L NS bolusing per order Maternal Complications: None Provider Comments: viable female from OA to ESTEPHANIA over ML lac. placed on mothers abd, cord clamped and cut after 2 minutes, mother bonding with baby. Spont delilvery of grossly nl intact placenta, 3 VC, lac repaired with 2-0 chromic without difficulty, baby and mom in recovery in stable condition, FFFM, Pitocin infusiing LABOR SUMMARY EDC: 01/24/2018 00:00 No. Babies in Womb: 1 Attempted: No Labor Anesthesia: Epidural LABOR INFORMATION Reason for Induction: Not Applicable Onset of Labor: 01/17/2018 07:00 Complete Dilatation: 01/17/2018 11:47 Oxytocin: N/A Group B Beta Strep: negative Antibiotics # of Doses: 0 Steroids Given: None Reason Steroids Not Administered: Not Applicable MEMBRANES Membranes Rupture Method: Spontaneous Rupture of Membranes: 01/17/2018 05:00 Length of Rupture (hr): 7.48 Amniotic Fluid Color: Clear Amniotic Fluid Amount: Small Amniotic Fluid Odor: Normal STAGES OF LABOR Stage 1 hr: 4 Stage 1 min: 47 Stage 2 hr: 0 Stage 2 min: 42 Stage 3 hr: 0 Stage 3 min: 4 Total Time in Labor hr: 5 Total Time in Labor min: 33 VAGINAL DELIVERY Episiotomy: None Laceration #1: Perineal Laceration Extension #1: First Degree Laceration Repair: Yes Laceration Repair Note: 2-0 chromic Sponge Count Correct: Yes Sharps Count Correct: Yes CSECTION DELIVERY Primary Indication: N/A Secondary Indication: N/A CSection Incidence: N/A Labor: N/A Elective: N/A CSection Incision: N/A BABY A INFORMATION Delivery Date/Time: 01/17/2018 12:29 Method of Delivery: Vaginal Born in Route : No : N/A Forceps: N/A Vacuum Extraction: N/A Shoulder Dystocia : No PRESENTATION/POSITION BABY A Presentation: Cephalic Cephalic Presentation: Vertex Vertex Position: Left Occipital Anterior Breech Presentation: N/A PLACENTA INFORMATION BABY A Placenta Delivery Time : 01/17/2018 12:33 Placenta Method of Delivery: Spontaneous Placenta Status: Delivered SCORES BABY A Heart Rate 1 min: >100 bpm Resp Effort 1 min: Good Cry Reflex Irritability 1 min: Cough or Sneeze or Pulls Away Muscle Tone 1 min: Active Motion Color 1 min: Blue/Pale Resuscitation Effort 1 min: Tactile Stimulation SCORE 1 MIN: 8 Heart Rate 5 min: >100 bpm Resp Effort 5 min: Good Cry Reflex Irritability 5 min: Cough or Sneeze or Pulls Away Muscle Tone 5 min: Active Motion Color 5 min: Body Nason, Extremities Blue Resuscitation Effort 5 min: Tactile Stimulation SCORE 5 MIN: 9 INFANT INFORMATION BABY A Gestational Age at Delivery: 39.0 Gestational Status: Full Term- 39- 40.6 Weeks Infant Outcome : Liveborn Infant Condition : Stable Infant Sex: Female IDENTIFICATION BABY A Infant Verification Date/Time: 01/17/2018 12:41 ID Band Number: [id number] Mother's Name Verified: Yes RN Verifying Infant: Csedgwick, RN Additional Verifying Personnel: A Bartlett AMMONIUM NITRATE NEUTRALIZER WEIGHT/LENGTH BABY A Birthweight (gm): 3440 Weight (lb): 7 Infant Weight (oz): 9 Length (in): 20.00 Infant Length (cm): 50.80 CORD INFORMATION BABY A No. Cord Vessels: 3 Nuchal Cord : N/A Cord Blood Taken: Yes-For Eval (Mom's Blood Type - or O+) Suction: Mouth; Nose ASSESSMENT BABY A Infant Complications: None Physical Findings at Delivery: Within Normal Limits Infant Respirations: Appears Normal Skin to Skin: Yes Skin to Skin Time (min): 60 Cooker Operator/ALS Called : No Infant Care By: J Field RN Transferred To: Remains with Mother BABY B INFORMATION : N/A
[2018-01-17] MEDS: DOCUSATE SODIUM 100 MG CAPSULE PO SCH (18:11)
[2018-01-17] MEDS: FERROUS SULFATE 325 MG TABLET PO SCH (18:11)
[2018-01-17] MEDS: FAMOTIDINE 20 MG TABLET PO SCH (21:17)
[2018-01-18] MEDS: IBUPROFEN 800 MG TABLET PO SCH ×3 (06:15→21:33)
[2018-01-18 06:31] LABS: HEMATOCRIT 29.3 % (36.0-47.0); HEMOGLOBIN 9.8 g/dL (12.0-15.5); MEAN CORPUSCULAR HEMOGLOBIN 29.9 pg (27.0-33.4); MEAN CORPUSCULAR HGB CONC 33.3 g/dL (32.0-36.0); MEAN CORPUSCULAR VOLUME 90 fl (80-97); PLATELET COUNT 248 10^3/uL (150-450); RED BLOOD COUNT 3.27 10^6/uL (3.72-5.28); RED CELL DISTRIBUTION WIDTH 14.7 % (11.5-14.0); WHITE BLOOD COUNT 12.5 10^3/uL (4.0-10.5)
[2018-01-18] MEDS: FERROUS SULFATE 325 MG TABLET PO SCH ×2 (09:14→17:17)
[2018-01-18] MEDS: PRENATAL VITAMIN W DHA CAPSULE PO SCH (09:14)
[2018-01-18] MEDS: SENNOSIDES/DOCUSATE 8.6-50 MG 1 EACH TABLET PO SCH (09:14)
[2018-01-18] MEDS: DOCUSATE SODIUM 100 MG CAPSULE PO SCH ×2 (09:14→17:17)
[2018-01-18] MEDS: FAMOTIDINE 20 MG TABLET PO SCH ×2 (09:14→21:33)
--- NOTE | 2018-01-18 09:41 | PDOC PROGRESS REPORT ---
Subjective-OB Progress Note for:: 01/18/18 Subjective: Pt doing well, has no complaints. She reports light bleeding, reg diet, voiding without difficulty. Physical Exam (OB) Vital Signs: Temp Pulse Resp BP Pulse Ox 97.6 F 88 16 109/53 L 99 01/18/18 09:26 01/18/18 09:26 01/18/18 09:26 01/18/18 09:26 01/18/18 09:26 Intake & Output 01/17/18 01/18/18 01/19/18 06:59 06:59 06:59 Intake Total 1700 Balance 1700 Weight 78.4 kg - PIH/Pre-Eclampsia Clonus: Negative Headache: Absent Epigastric Pain: No Visual Changes: No - Lochia Lochia Amount: Small 10-25 ml Lochia Color: Rubra/Red - Abdomen Description: Tender, Soft, Round Hernia Present: No Fundal Description: Firm, Midline Fundal Height: u/u - u/2 Objective-Diagnostic Laboratory: 01/18/18 06:06 01/18/18 06:06 WBC 12.5 H RBC 3.27 L Hgb 9.8 L Hct 29.3 L MCV 90 MCH 29.9 MCHC 33.3 RDW 14.7 H Plt Count 248 Assessment and Plan(PN) - Assessment and Plan (1) Vaginal delivery Is this a current diagnosis for this admission?: Yes (2) Premature rupture of membranes Qualifiers: PROM onset of labor timing: onset of labor within 24 hours of rupture PROM gestational age: unspecified gestational age Qualified Code(s): O42.00 - Premature rupture of membranes, onset of labor within 24 hours of rupture, unspecified weeks of gestation Is this a current diagnosis for this admission?: Yes (3) Cannabis abuse Is this a current diagnosis for this admission?: Yes - Time Spent with Patient Time with patient: Less than 15 minutes Medications reviewed and adjusted accordingly: Yes - Disposition Anticipated Discharge: Home Within: within 24 hours
[2018-01-19] MEDS: IBUPROFEN 800 MG TABLET PO SCH ×3 (06:02→21:53)
--- NOTE | 2018-01-19 08:14 | PDOC PROGRESS REPORT ---
Subjective Progress Note for:: 01/19/18 Reason For Visit: Physical Exam - Physical Exam Vital Signs: Temp Pulse Resp BP Pulse Ox 97.5 F 111 H 17 129/79 H 100 01/18/18 19:23 01/18/18 19:23 01/18/18 19:23 01/18/18 19:23 01/18/18 19:23 Intake & Output 01/18/18 01/19/18 01/20/18 06:59 06:59 06:59 Intake Total 1700 500 Balance 1700 500 General appearance: PRESENT: no acute distress Respiratory exam: PRESENT: clear to auscultation edinson Cardiovascular exam: PRESENT: RRR GI/Abdominal exam: PRESENT: normal bowel sounds, soft Extremities exam: ABSENT: calf tenderness, clubbing, full ROM, joint swelling, pedal edema, tenderness, +1 edema, +2 edema, other Result Laboratory Results: 01/18/18 06:06 Assessment & Plan - Plan Summary Plan Summary: Plan: 1. PPD#2-s/p , doing well 2. Discharge today 3. Follow up in the office in 4 weeks for a pp exam or sooner if needed 4. Rx on chart
[2018-01-19] MEDS: SENNOSIDES/DOCUSATE 8.6-50 MG 1 EACH TABLET PO SCH (09:29)
[2018-01-19] MEDS: DOCUSATE SODIUM 100 MG CAPSULE PO SCH ×2 (09:29→17:43)
[2018-01-19] MEDS: FAMOTIDINE 20 MG TABLET PO SCH ×2 (09:29→21:53)
[2018-01-19] MEDS: FERROUS SULFATE 325 MG TABLET PO SCH ×2 (09:29→17:43)
[2018-01-19] MEDS: PRENATAL VITAMIN W DHA CAPSULE PO SCH (09:29)
[2018-01-19] MEDS ORDERED: BENZONATATE 100 MG CAPSULE PO PRN (22:34)
[2018-01-20] MEDS: IBUPROFEN 800 MG TABLET PO SCH (05:27)
[2018-01-20] MEDS: DOCUSATE SODIUM 100 MG CAPSULE PO SCH (10:38)
[2018-01-20] MEDS: FERROUS SULFATE 325 MG TABLET PO SCH (10:39)
[2018-01-20] MEDS: FAMOTIDINE 20 MG TABLET PO SCH (10:39)
[2018-01-20] MEDS: SENNOSIDES/DOCUSATE 8.6-50 MG 1 EACH TABLET PO SCH (10:39)
[2018-01-20] MEDS: PRENATAL VITAMIN W DHA CAPSULE PO SCH (10:39)
[2018-01-20 10:50] VITALS: BP 126/82
--- NOTE | 2018-02-14 12:42 | PDOC DISCHARGE SUMMARY ---
Final Diagnosis Discharge Date: 01/19/18 - Final Diagnosis (1) Vaginal delivery Is this a current diagnosis for this admission?: Yes (2) Anemia, Is this a current diagnosis for this admission?: Yes Discharge Data - Discharge Medication Prescriptions: Ferrous Sulfate [Feosol 325 mg Tablet] 325 mg PO BID #60 tablet Ibuprofen [Motrin 800 mg Tablet] 800 mg PO Q8 #40 tablet Sennosides/Docusate 8.6-50 mg [Senna Plus Tablet] 1 each PO DAILY PRN #30 tablet PRN Reason: constipation Home Medications: Pnv,Calcium 72/Iron/Folic Acid [ Plus Tablet] 1 tab PO DAILY 01/09/18 Amoxicillin 1 tab PO BID 01/16/18 Ferrous Sulfate [Feosol 325 mg Tablet] 325 mg PO BID #60 tablet 01/19/18 Glycerin/Witch [place]ia [place] [Tucks Take-Alongs Pads 1 Each] 1 each TP DAILYP PRN med..pad 01/19/18 Ibuprofen [Motrin 800 mg Tablet] 800 mg PO Q8 #40 tablet 01/19/18 Vit/Dha [ Multi + Dha Capsule] 1 cap PO DAILY capsule Sennosides/Docusate 8.6-50 mg [Senna Plus Tablet] 1 each PO DAILY PRN #30 tablet 01/19/18 Gestational Age: 39.0 weeks Reason(s) for Admission: PROM Procedures: NST Intrapartum Procedure(s): Spontaneous Vaginal Delivery Complication(s): Laceration-Perineal Laceration-Degree: 1st - Diagnosis Test Laboratory: Temp Pulse Resp BP Pulse Ox 97.5 F 91 18 126/82 H 100 01/20/18 10:44 01/20/18 10:44 01/20/18 10:29 01/20/18 10:44 01/20/18 10:44 01/17/18 01/17/18 01/18/18 06:10 06:45 06:06 RBC 3.20 L 3.27 L Hgb 9.6 L 9.8 L Hct 28.7 L 29.3 L Urine Opiates Screen NEGATIVE - Discharge information/Instructions Discharge Activity: Activity As Tolerated, Pelvic Rest, Walk Frequently Discharge Diet: As Tolerated Disposition: HOME, SELF-CARE Follow up with: [facility] in: 6, Weeks
== END 2018-01-20 11:00 | disposition home or self-care (01) | DRG 775 ==
LOC: LC 05:41 → LR 06:16 → 2S 15:00
PROVIDERS: ADMIT Student in an Organized Health Care Education/Training Program; ATTEND Student in an Organized Health Care Education/Training Program
PROC: 10E0XZZ Delivery of Products of Conception, External Approach (ICD-10-PCS; principal; 2018-01-17)
PROC: 0HQ9XZZ Repair Perineum Skin, External Approach (ICD-10-PCS; 2018-01-17)
PROC: 4A1HXCZ Monitoring of Products of Conception, Cardiac Rate, External Approach (ICD-10-PCS; 2018-01-17)
DX: O42.02 Full-term premature rupture of membranes, onset of labor within 24 hours of rupture (principal); O99.324 Drug use complicating childbirth; O99.334 Smoking (tobacco) complicating childbirth; F12.10 Cannabis abuse, uncomplicated; F17.210 Nicotine dependence, cigarettes, uncomplicated; O99.513 Diseases of the respiratory system complicating pregnancy, third trimester; J45.909 Unspecified asthma, uncomplicated; O70.0 First degree perineal laceration during delivery; O90.81 Anemia of the puerperium; D64.9 Anemia, unspecified; Z88.4 Allergy status to anesthetic agent; Z88.8 Allergy status to other drugs, medicaments and biological substances; Z91.018 Allergy to other foods; Z3A.39 39 weeks gestation of pregnancy; Z37.0 Single live birth
CPT/HCPCS: 36415; 80307; 81005; 84112; 85025; 85027; 86592; 86850; 86900; 86901; 94760; J2370; J2590; J3010; J3490

== ENCOUNTER 2018-01-28 19:59 | Emergency (ER) | payer OTHER ==
[2018-01-28 22:18] LABS: ABSOLUTE BASOPHILS # (AUTO) 0.1 10^3/uL (0.0-0.2); ABSOLUTE EOSINOPHILS # (AUTO) 0.6 10^3/uL (0.0-0.6); ABSOLUTE LYMPHOCYTES (AUTO) 2.9 10^3/uL (0.5-4.7); ABSOLUTE MONOCYTES (AUTO) 1.1 10^3/uL (0.1-1.4); ABSOLUTE NEUT (AUTO) 9.2 10^3/uL (1.7-8.2); BASOPHILS % (AUTO) 0.7 % (0-2); EOSINOPHILS % (AUTO) 4.2 % (0-6); HEMATOCRIT 38.4 % (36.0-47.0); HEMOGLOBIN 12.5 g/dL (12.0-15.5); LYMPHOCYTES % (AUTO) 21.2 % (13-45); MEAN CORPUSCULAR HEMOGLOBIN 29.3 pg (27.0-33.4); MEAN CORPUSCULAR HGB CONC 32.6 g/dL (32.0-36.0); MEAN CORPUSCULAR VOLUME 90 fl (80-97); MONOCYTES % (AUTO) 7.6 % (3-13); PLATELET COUNT 501 10^3/uL (150-450); RED BLOOD COUNT 4.28 10^6/uL (3.72-5.28); RED CELL DISTRIBUTION WIDTH 15.1 % (11.5-14.0); SEGMENTED NEUTROPHILS % (AUTO) 66.3 % (42-78); TOTAL CELLS COUNTED % (AUTO) 100 %; WHITE BLOOD COUNT 13.9 10^3/uL (4.0-10.5)
[2018-01-28 22:47] LABS: APPEARANCE,URINE SLIGHTLY-CLOUDY; BILIRUBIN,URINE NEGATIVE (NEGATIVE); COLOR,URINE YELLOW; GLUCOSE, URINE NEGATIVE (NEGATIVE); KETONES,URINE NEGATIVE (NEGATIVE); LEUKOCYTE ESTERASE,URINE LARGE (NEGATIVE); NITRITE,URINE NEGATIVE (NEGATIVE); PROTEIN,URINE NEGATIVE (NEGATIVE); URINE SPECIFIC GRAVITY 1.018
--- NOTE | 2018-01-28 23:31 | RADIOLOGY REPORT (SQ) ---
EXAM DESCRIPTION: US PELVIS COMPLETED DATE/TME: 01/28/2018 21:52 CLINICAL HISTORY: 22 years, Female, vaginal bleeding eval for retained POC FINDINGS: Uterus is anteverted and measures 11.3 x 7.1 x 9.1 cm. Endometrium is mildly thickened with complex fluid. No abnormal vascularity seen in the endometrium. Ovaries are within normal limits. Normal vascularity seen in ovaries on color and spectral Doppler images. No abnormal adnexal masses. IMPRESSION: No suspicious abnormal adnexal masses. Mild complex fluid within the endometrium likely representing hemorrhage.
[2018-01-29 00:28] VITALS: BP 120/72
--- NOTE | 2018-01-29 00:28 | ER Document Report ---
ED GI/ - General Chief Complaint: Abdominal Pain Stated Complaint: VAGINAL BLEEDING Time Seen by Provider: 01/28/18 21:49 Mode of Arrival: Ambulatory Information source: Patient Notes: Patient is a 22-year-old female who presents with chief complaint of vaginal bleeding. Patient reports she had a vaginal delivery on 01/17/18. Patient reports she is now passing clots of dark red blood. Patient denies any fever, nausea, vomiting, diarrhea or chills. TRAVEL OUTSIDE OF THE [place] IN LAST 30 DAYS: No - Related Data Allergies/Adverse Reactions: diphenhydramine [From Benadryl] Allergy (Severe, Verified 01/17/18 06:07) Hives [place] And Derivatives Allergy (Mild, Verified 01/17/18 06:07) Past Medical History - General Information source: Patient - Social History Smoking Status: Never Smoker Frequency of alcohol use: None Drug Abuse: None Family History: Arthritis, CAD, CVA, DM, Hyperlipidemia, Hypertension, Malignancy - Medical History Medical History: Negative Renal/ Medical History: Denies: Hx Peritoneal Dialysis Psychiatric Medical History: Reports: Hx Attention Deficit Hyperactivity Disorder - Immunizations Immunizations up to date: Yes Hx Diphtheria, Pertussis, Tetanus Vaccination: Yes Hx Pneumococcal Vaccination: 05/08/00 Review of Systems - Review of Systems Female Genitourinary: See HPI -: Yes All other systems reviewed and negative Physical Exam - Vital signs Vitals: Pulse Resp BP Pulse Ox 66 16 120/72 98 01/29/18 00:27 01/29/18 00:27 01/29/18 00:27 01/29/18 00:27 - Notes Notes: PHYSICAL EXAMINATION: GENERAL: Well-appearing, well-nourished and in no acute distress. HEAD: Atraumatic, normocephalic. EYES: Pupils equal round and reactive to light, extraocular movements intact, conjunctiva are normal. ENT: Nares patent, oropharynx clear without exudates. Moist mucous membranes. NECK: Normal range of motion, supple without lymphadenopathy LUNGS: Breath sounds clear to auscultation bilaterally and equal. No wheezes rales or rhonchi. HEART: Regular rate and rhythm without murmurs ABDOMEN: Soft, nontender, nondistended abdomen. No guarding, no rebound. No masses appreciated. Female : Speculum exam reveals small amount of dark red blood coming from the cervical os. Musculoskeletal: Normal range of motion, no pitting or edema. No cyanosis. NEUROLOGICAL: Cranial nerves grossly intact. Normal speech, normal gait. Normal sensory, motor exams PSYCH: Normal mood, normal affect. SKIN: Warm, Dry, normal turgor, no rashes or lesions noted. Course - Re-evaluation Re-evalutation: CBC is normal with a stable H&H. Transvaginal ultrasound is unremarkable and there are no signs of any retained POC. Speculum exam was done and there is only a small amount of bleeding currently. Patient will be discharged home in stable condition with strict ED return precautions to include bleeding through more than 1 pad per hour. Patient will follow up with VASCULAR MANAGER in the next 2-3 days. - Vital Signs Vital signs: Temp Pulse Resp BP Pulse Ox 66 16 120/72 98 01/29/18 00:27 01/29/18 00:27 01/29/18 00:27 01/29/18 00:27 - Laboratory Result Diagrams: 01/28/18 22:00 Laboratory results interpreted by me: 01/28/18 01/28/18 22:00 22:00 WBC 13.9 H RDW 15.1 H Plt Count 501 H Absolute Neutrophils 9.2 H Urine Blood LARGE H Urine Urobilinogen 4.0 H Ur Leukocyte Esterase LARGE H Discharge - Discharge Clinical Impression: Vaginal bleeding Condition: Stable Disposition: HOME, SELF-CARE Additional Instructions: Your blood work today was normal. The ultrasound that was performed does not show any evidence of any abnormality in the uterus. Please return to the emergency department immediately if you develop worsening of your vaginal bleeding, are bleeding through more than 1 pad per hour. Please call your OB/ NUCLEAR AUXILIARY OPERATOR provider tomorrow let them know you were seen in the emergency department and you would like to get a follow-up appointment. Take it easy over the next several days, no heavy lifting do not lift anything heavier than your baby. Absolutely nothing into the vagina until cleared by OB Referrals: ARLENE MEDINA MD [Primary Care Provider] - Follow up as needed
== END 2018-01-29 00:33 | disposition home or self-care (01) ==
LOC: ER 19:59
DX: O72.2 Delayed and secondary postpartum hemorrhage (principal); Z88.8 Allergy status to other drugs, medicaments and biological substances; Z91.048 Other nonmedicinal substance allergy status
CPT/HCPCS: 36415; 76856; 81001; 81025; 85025; 93976; 99284

== ENCOUNTER 2018-12-31 19:10 | Emergency (ER) | payer OTHER ==
[2018-12-31] MEDS ORDERED: ONDANSETRON HCL INJ/PF 4 MG/2 ML SDV IV ONE (20:06)
--- NOTE | 2018-12-31 20:07 | ER Document Report ---
ED Medical Screen (RME) - General Chief Complaint: Abdominal Pain Stated Complaint: ABDOMINAL PAIN Time Seen by Provider: 12/31/18 19:59 Mode of Arrival: Ambulatory Information source: Patient Notes: 23-year-old female presented to ED for complaint of right pelvic/lower abdominal pain. She states she had severe pressure in this area starting about 3 PM and then developed pain at 4 PM. She states she is extremely nauseated has not vomited. Temp is 98.5 at this time. She states she had no symptoms before 3 PM. She states last menstrual period was about a week and half ago. Patient is alert oriented respirations regular nonlabored states it hurts to walk or lift her right leg. I have greeted and performed a rapid initial assessment of this patient. A comprehensive ED assessment and evaluation of the patient, analysis of test results and completion of medical decision making process will be conducted by an additional ED providers. TRAVEL OUTSIDE OF THE [place] IN LAST 30 DAYS: No - Related Data Allergies/Adverse Reactions: diphenhydramine [From Benadryl] Allergy (Severe, Verified 01/17/18 06:07) Hives [place] And Derivatives Allergy (Mild, Verified 01/17/18 06:07) Past Medical History Renal/ Medical History: Denies: Hx Peritoneal Dialysis Psychiatric Medical History: Reports: Hx Attention Deficit Hyperactivity Disorder - Immunizations Immunizations up to date: Yes Hx Diphtheria, Pertussis, Tetanus Vaccination: Yes Physical Exam - Vital signs Vitals: Temp Pulse Resp BP Pulse Ox 98.5 F 58 L 20 118/65 100 12/31/18 20:03 12/31/18 20:03 12/31/18 20:03 12/31/18 20:03 12/31/18 20:03 Course - Vital Signs Vital signs: Temp Pulse Resp BP Pulse Ox 98.5 F 58 L 20 118/65 100 12/31/18 20:03 12/31/18 20:03 12/31/18 20:03 12/31/18 20:03 12/31/18 20:03
[2018-12-31 20:32] LABS: ABSOLUTE BASOPHILS # (AUTO) 0.1 10^3/uL (0.0-0.2); ABSOLUTE EOSINOPHILS # (AUTO) 0.5 10^3/uL (0.0-0.6); ABSOLUTE LYMPHOCYTES (AUTO) 3.5 10^3/uL (0.5-4.7); ABSOLUTE MONOCYTES (AUTO) 0.9 10^3/uL (0.1-1.4); ABSOLUTE NEUT (AUTO) 6.3 10^3/uL (1.7-8.2); EOSINOPHILS % (AUTO) 4.6 % (0-6); HEMATOCRIT 42.6 % (36.0-47.0); LYMPHOCYTES % (AUTO) 30.8 % (13-45); MEAN CORPUSCULAR HEMOGLOBIN 30.5 pg (27.0-33.4); MEAN CORPUSCULAR HGB CONC 32.9 g/dL (32.0-36.0); MEAN CORPUSCULAR VOLUME 93 fl (80-97); MONOCYTES % (AUTO) 7.9 % (3-13); PLATELET COUNT 287 10^3/uL (150-450); RED CELL DISTRIBUTION WIDTH 13.4 % (11.5-14.0); SEGMENTED NEUTROPHILS % (AUTO) 55.7 % (42-78); TOTAL CELLS COUNTED % (AUTO) 100 %; WHITE BLOOD COUNT 11.4 10^3/uL (4.0-10.5)
[2018-12-31 20:54] LABS: APPEARANCE,URINE CLEAR; BILIRUBIN,URINE NEGATIVE (NEGATIVE); COLOR,URINE STRAW; GLUCOSE, URINE NEGATIVE (NEGATIVE); KETONES,URINE NEGATIVE (NEGATIVE); LEUKOCYTE ESTERASE,URINE NEGATIVE (NEGATIVE); NITRITE,URINE NEGATIVE (NEGATIVE); PROTEIN,URINE NEGATIVE (NEGATIVE); URINE SPECIFIC GRAVITY 1.011; UROBILINOGEN,URINE NEGATIVE mg/dL (<2.0)
[2018-12-31 20:55] LABS: ALBUMIN 4.8 g/dL (3.5-5.0); ALKALINE PHOSPHATASE 70 U/L (38-126); ANION GAP 10 (5-19); ASPARTATE AMINO TRANSFERASE 17 U/L (14-36); BILIRUBIN,DIRECT 0.3 mg/dL (0.0-0.4); BILIRUBIN,TOTAL 0.5 mg/dL (0.2-1.3); BLOOD UREA NITROGEN 12 mg/dL (7-20); CALCIUM 10.1 mg/dL (8.4-10.2); CARBON DIOXIDE 26 mmol/L (22-30); CHLORIDE 104 mmol/L (98-107); GLUCOSE 92 mg/dL (75-110); POTASSIUM 4.2 mmol/L (3.6-5.0); TOTAL PROTEIN 8.2 g/dL (6.3-8.2)
--- NOTE | 2018-12-31 21:41 | RADIOLOGY REPORT (SQ) ---
EXAM DESCRIPTION: RadLex: US ABDOMEN LIMITED CLINICAL HISTORY: 23 years Female; look at appendix rlq/pelvic pain; TECHNICAL DATA: Right lower quadrant ultrasound performed to evaluate the appendix. COMPARISON: None. FINDINGS: Appendix is not reliably visualized. No focal fluid collections. IMPRESSION: 1. Appendix was not reliably identified. 2. No secondary signs for acute appendicitis. 3. Note that appendicitis cannot be excluded based on this exam alone.
--- NOTE | 2018-12-31 21:42 | RADIOLOGY REPORT (SQ) ---
EXAM DESCRIPTION: US PELVIS TRANSVAGINAL COMPLETED DATE/TME: 12/31/2018 20:04 CLINICAL HISTORY: 23 years, Female, rlq/pelvic pain COMPARISON: Prior study from 06/13/2017 TECHNIQUE: Axial 2-D grayscale images of the pelvis were performed. Doppler was not utilized. LIMITATIONS: None. FINDINGS: LMP: 12/19/2018 Uterus measures 9.3 x 5.2 x 4.2 cm in size. Cervix is closed, measuring 2.5 cm in length. A small amount of endocervical fluid is noted. Endometrial stripe thickness measures 0.7 cm. Right ovary measures 2.8 x 2.6 x 3.1 cm in size. It demonstrates Doppler flow though spectral analysis was not performed. In addition, the right ovary contains a 2.5 x 1.4 x 2.0 cm simple cyst for which no further follow-up is necessary. Left ovary measures 2.5 x 2.7 x 2.5 cm in size, and also demonstrates Doppler flow though spectral analysis was not performed. IMPRESSION: No acute sonographic abnormality. copyright 2010 [employer]- All Rights Reserved
--- NOTE | 2018-12-31 23:43 | ER Document Report ---
HPI - HPI Patient complains to provider of: rlq abd pain Time Seen by Provider: 12/31/18 19:59 Onset: This afternoon Onset/Duration: Gradual, Constant, Worse Quality of pain: Sharp Severity: Moderate Pain Level: 4 Context: 23 Yr old female patient, with the listed pmh, here for rlq abdominal pain x the last several hours. somewhat abrupt in onset. lmp 10 days ago. some nausea. no vomiting. no hx of this before. otc meds not helping. denies . No abdominal surgeries. No history of ovarian cysts, fibroids, endometriosis, or renal stones. Normal bowel movements. No UTI symptoms. No URI symptoms. No recent antibiotics or steroids. No history of diabetes or asthma. No vaginal discharge/complaints/lesions or concerns for STDs and does not want a pelvic exam. No excessive NSAID use, Tylenol use, or EtOH. No prior history of gallbladder disease, pancreatitis, ulcers, GI bleed, GERD, IBS, Crohn's, or UC. no change in color or caliber or stool. no blood thinners. no fall or trauma. no other associated sx. Similar symptoms previously: No Recently seen / treated by doctor: No - ROS Systems Reviewed and Negative: Yes All other systems reviewed and negative - to include 10 systems, unless mentioned in the hpi - REPRODUCTIVE LMP: 1 wk ago Reproductive: DENIES: : Past Medical History - General Information source: Patient - Social History Smoking Status: Never Smoker Frequency of alcohol use: None Drug Abuse: None Family History: Arthritis, CAD, CVA, DM, Hyperlipidemia, Hypertension, Malignancy Renal/ Medical History: Denies: Hx Peritoneal Dialysis Psychiatric Medical History: Reports: Hx Attention Deficit Hyperactivity Disor justo Surgical Hx: Negative Past Surgical History: Denies: Hx Abdominal Surgery - Immunizations Immunizations up to date: Yes Hx Diphtheria, Pertussis, Tetanus Vaccination: Yes Hx Pneumococcal Vaccination: 05/08/00 Vertical Provider Document - CONSTITUTIONAL Agree With Documented VS: Yes Exam Limitations: No Limitations Notes: >>>> PHYSICAL_EXAM: GENERAL_APPEARANCE: well_nourished, alert, cooperative, no_acute_distress, mild_obvious_discomfort. Pleasant, young female, smiling, speaking in full sentences, in no sign of resp distress, appears uncomfortable and in pain with movement. adult male significant other at bedside with small child. pt isn't breast feeding. VITALS: reviewed, see vital signs table. HEAD: normocephalic, atraumatic. no donato signs. no raccoon eyes. EYES: PERRL, EOMI, (-)scleral icterus. NOSE: no_nasal_discharge. MOUTH: (-)decreased moisture. THROAT: no_tonsilar_inflammation/hypertrophy/exudate NECK: supple, no_neck_tenderness, full rom. full strength. no meningeal signs. BACK: no midline_back_tenderness. no step offs or deformities CHEST_WALL: no_chest_tenderness. LUNGS: no_wheezing, (-)accessory muscle use, good air exchange bilateral. HEART: normal_rate, normal_rhythm, ABDOMEN: normal_BS, soft, abdomen-diffuse, mild-mod ttp rlq (-)guarding, (- )rebound, no distension or peritoneal signs. neg murphys. neg mcburneys. no cva tenderness. neg heel strike. neg obturator. neg psoas. neg rovsign. PELVIC: pt deferred RECTAL: deferred EXTREMITIES: strength 5/5 in all_extremities, good pulses in all_extremities, no_edema, no_swelling\tenderness. full rom. normal gait. 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 brisk cap refill. SKIN: warm, dry, good_color, no_rash. no grossly visible overlying skin changes to suggest trauma NEURO: motor_intact, sensory_intact. cranial nerves 2-12 intact, MENTAL_STATUS: normal_affect, speech_clear, oriented_X_3, responds_appropriately to questions. - INFECTION CONTROL TRAVEL OUTSIDE OF THE [place] IN LAST 30 DAYS: No Course - Re-evaluation Re-evalutation: 01/01/19 02:45 Pt here for rlq abd pain for the last few hrs. sx somewhat abrupt in onset and sounds like an ov cyst or mittleschmertz, labs unremarkable other than a mild leukocytosis. gc/chlam pending. advised pt will call with results once they return. she did not want prophylactic tx of gc/chlam today. she responded well to meds given and is tolerating po and pain controlled. she refused pelvic exam. triage abd us and transvag doppler us neg other than a small right ov cyst per rad and reviewed by myself. ct abd and pelv with iv contrast done to r/o acute appy, and was neg per rad and reviewed by myself however the appendix wasn't visualized on ct per rad and reviewed by myself. pt informed of findings and to f/u closely to insure improvement of sx and not a brewing appy. advised sx care. otc meds for pain. drink plenty of fluids. bland diet. advised to f/u with pcp/obgyn in 1-2 days. return for any worsening symptoms. vss. well appearing. satting well on ra. neurononfocal. pt understands and agrees to plan. On reexam, pt improved with tx listed. remained stable. nontoxic. well appearing. pain controlled. tolerating po. requesting to go home. serial abd exams remain benign. Documentation achieved through voice recording which may lead to some occasional accidental typographical errors. Extensive efforts have been made to proof read documentation to make sure these are the least as possible. Category Date Time Status Saline Lock (ED) NOW Care 12/31/18 20:[address] ABD/PELVIS WITH IV ONLY [CT] Stat Exams 01/01/19 00:17 Completed U/S ABDOMEN LIMITED W/O DOP [US] Stat Exams 12/31/18 20:04 Completed U/S NON-OB PELVIS TV W/O DOP [US] Stat Exams 12/31/18 20:04 Completed ADD ON [ADD ON TESTING BLD IN LAB] [CHEM] Stat Lab 01/01/19 00:18 Completed CBC WITH DIFF [HEME] Stat Lab 12/31/18 20:12 Completed COMPREHENSIVE METABOLIC PANEL [CHEM] Stat Lab 12/31/18 20:12 Completed HCG-QUAL, SERUM [CHEM] Stat Lab 12/31/18 20:12 Completed LIPASE [CHEM] Stat Lab 01/01/19 00:18 Completed URINALYSIS [URIN] Stat Lab 12/31/18 20:12 Completed Morphine Sulfate [Morphine 10 mg/ml Inj] Med 01/01/19 00:15 Discontinued 4 mg IV NOW ONE Normal Saline 1000 ml [NaCl 0.9% 1000 ml IV Soln] 1,000 Med 01/01/19 00:17 Discontinued ml IV BOLUS Ondansetron HCl/Pf [Zofran Inj/Pf 4 mg/2 ml Sdv] Med 12/31/18 20:06 Discontinued 8 mg IV NOW ONE - Vital Signs Vital signs: Temp Pulse Resp BP Pulse Ox 98.5 F 58 L 20 118/65 100 12/31/18 20:03 12/31/18 20:03 12/31/18 20:03 12/31/18 20:03 12/31/18 20:03 01/01/19 02:45 Temp Pulse Pulse Resp BP BP Pulse Ox 01/01/19 00:39 97.7 F 48 L 103/60 100 12/31/18 20:03 98.5 F 58 L 20 118/65 100 12/31/18 20:00 98.5 F 54 L 20 118/65 100 Temp Pulse Pulse Resp BP BP Pulse Ox 01/01/19 03:25 97.8 F 52 L 16 108/62 100 01/01/19 00:39 97.7 F 48 L 103/60 100 12/31/18 20:03 98.5 F 58 L 20 118/65 100 12/31/18 20:00 98.5 F 54 L 20 118/65 100 - Laboratory Result Diagrams: 12/31/18 20:12 12/31/18 20:12 Laboratory results interpreted by me: 12/31/18 20:12 WBC 11.4 H 01/01/19 02:45 Labs- Entire Visit 12/31/18 12/31/18 12/31/18 20:12 20:12 20:12 WBC 11.4 H RBC 4.60 Hgb 14.0 Hct 42.6 MCV 93 MCH 30.5 MCHC 32.9 RDW 13.4 Plt Count 287 Lymph % (Auto) 30.8 Gulf % (Auto) 7.9 Eos % (Auto) 4.6 Baso % (Auto) 1.0 Absolute Neuts (auto) 6.3 Absolute Lymphs (auto) 3.5 Absolute Monos (auto) 0.9 Absolute Eos (auto) 0.5 Absolute Basos (auto) 0.1 Seg Neutrophils % 55.7 Sodium 140.3 Potassium 4.2 Chloride 104 Carbon Dioxide 26 Anion Gap 10 BUN 12 Creatinine 0.88 Est GFR ( Amer) > 60 Est GFR (MDRD) Non-Af > 60 Glucose 92 Calcium 10.1 Total Bilirubin 0.5 Direct Bilirubin 0.3 Neonat Total Bilirubin Not Reportable Neonat Direct Bilirubin Not Reportable Neonat Indirect Bili Not Reportable AST 17 ALT 11 Alkaline Phosphatase 70 Total Protein 8.2 Albumin 4.8 Lipase Serum HCG, Qual NEGATIVE Urine Color Urine Appearance Urine pH Ur Specific [place] Urine Protein Urine Glucose (UA) Urine Ketones Urine Blood Urine Nitrite Urine Bilirubin Urine Urobilinogen Ur Leukocyte Esterase Urine WBC (Auto) Urine RBC (Auto) Urine Bacteria (Auto) Squamous Epi Cells Auto Urine Mucus (Auto) Urine Ascorbic Acid 12/31/18 01/01/19 20:12 00:18 WBC RBC Hgb Hct MCV MCH MCHC RDW Plt Count Lymph % (Auto) Gulf % (Auto) Eos % (Auto) Baso % (Auto) Absolute Neuts (auto) Absolute Lymphs (auto) Absolute Monos (auto) Absolute Eos (auto) Absolute Basos (auto) Seg Neutrophils % Sodium Potassium Chloride Carbon Dioxide Anion Gap BUN Creatinine Est GFR ( Amer) Est GFR (MDRD) Non-Af Glucose Calcium Total Bilirubin Direct Bilirubin Neonat Total Bilirubin Neonat Direct Bilirubin Neonat Indirect Bili AST ALT Alkaline Phosphatase Total Protein Albumin Lipase 86.8 Serum HCG, Qual Urine Color STRAW Urine Appearance CLEAR Urine pH 6.0 Ur Specific [place] 1.011 Urine Protein NEGATIVE Urine Glucose (UA) NEGATIVE Urine Ketones NEGATIVE Urine Blood NEGATIVE Urine Nitrite NEGATIVE Urine Bilirubin NEGATIVE Urine Urobilinogen NEGATIVE Ur Leukocyte Esterase NEGATIVE Urine WBC (Auto) 2 Urine RBC (Auto) 1 Urine Bacteria (Auto) TRACE Squamous Epi Cells Auto 2 Urine Mucus (Auto) RARE Urine Ascorbic Acid NEGATIVE - Diagnostic Test Radiology reviewed: Image reviewed, Reports reviewed Radiology results interpreted by me: 01/01/19 02:46 Abdomen Ultrasound 12/31/18 20:04 IMPRESSION: 1. Appendix was not reliably identified. 2. No secondary signs for acute appendicitis. 3. Note that appendicitis cannot be excluded based on this exam alone. Transvaginal US 12/31/18 20:04 IMPRESSION: No acute sonographic abnormality. copyright 2010 [employer]- All Rights Reserved Abdomen/Pelvis CT 01/01/19 00:17 IMPRESSION: No acute abdominal or pelvic pathology. Discharge - Discharge Clinical Impression: Pelvic pain Ovarian cyst Qualifiers: Laterality: right Qualified Code(s): N83.201 - Unspecified ovarian cyst, right side Leukocytosis Qualifiers: Leukocytosis type: other Qualified Code(s): D72.828 - Other elevated white blood cell count Condition: Good Disposition: HOME, SELF-CARE Instructions: Abdominal Pain ([facility]), Observation for Appendicitis ([facility]), Ovarian Cyst ([facility]) Additional Instructions: Follow-up with your obgyn/PCP in 1 to 2 days. Return for any worsening sy mptoms. tylenol or motrin as needed for any pain or fever if not allergic. take the medication as prescribed. drink plenty of fluids. pelvic rest . we will call you with your results once they return. f/u with the health dept for any further desired std testing. condom use for safe sex. have partner tested/treated before engaging in any intercourse.
[2019-01-01] MEDS ORDERED: MORPHINE SULFATE 10 MG/ML INJ IV ONE (00:15)
[2019-01-01] MEDS ORDERED: NORMAL SALINE 1000 ML 1,000 ML IV ONE (00:17)
--- NOTE | 2019-01-01 02:42 | RADIOLOGY REPORT (SQ) ---
CT ABDOMEN PELVIS WITH IV CONTRAST EXAM DATE: 01/01/2019 12:17 AM CDT HISTORY: Right upper quadrant pain. COMPARISON: None. TECHNIQUE: CT scan of the abdomen and pelvis was performed with IV contrast. This exam was performed according to our departmental dose-optimization program, which includes automated exposure control, adjustment of the mA and/or kV according to patient size and/or use of iterative reconstruction technique. FINDINGS: The lung bases are clear. No pleural or pericardial effusions. There is no hiatal hernia. The liver, spleen, pancreas, gallbladder, adrenal glands, and kidneys are unremarkable. No urinary stones are seen. The pelvic organs are also unremarkable. No small bowel obstruction. The appendix is is not visualized. There is no evidence of diverticulitis. No intraperitoneal free fluid or free air is identified. The aorta is normal caliber. No acute bony findings are seen. There is no pathologic body wall hernia. IMPRESSION: No acute abdominal or pelvic pathology.
[2019-01-01 03:26] VITALS: BP 108/62
[2019-01-01 05:09] LABS: CHLAM PCR DETECTED (NOT DETECT)
== END 2019-01-01 03:26 | disposition home or self-care (01) ==
LOC: ER 19:10
DX: N83.201 Unspecified ovarian cyst, right side (principal); D72.828 Other elevated white blood cell count; R10.2 Pelvic and perineal pain; R10.31 Right lower quadrant pain
CPT/HCPCS: 36415; 83690; 84703; 85025; 80053; 81001; 87491; 87591; 76705; 76830; 74177; J2270; J2405; J7030; 96361; 96374; 96375; 99284

== ENCOUNTER 2019-12-13 17:19 | Outpatient (CLI) | payer OTHER ==
[2019-12-13 18:15] LABS: BACTERIA (WET MOUNT) 4+ BACTERIA SEEN; EPITHELIALS (WET MOUNT) 3+ EPITHELIALS SEEN; T.VAGINALIS (WET MOUNT) NO TRICHOMONAS SEEN; WBCS (WET MOUNT) 3+ WBCS SEEN; YEAST (WET MOUNT) NO YEAST SEEN
[2019-12-13 18:22] LABS: APPEARANCE,URINE SLIGHTLY-CLOUDY; BILIRUBIN,URINE NEGATIVE (NEGATIVE); COLOR,URINE YELLOW; GLUCOSE, URINE NEGATIVE (NEGATIVE); KETONES,URINE NEGATIVE (NEGATIVE); LEUKOCYTE ESTERASE,URINE LARGE (NEGATIVE); NITRITE,URINE NEGATIVE (NEGATIVE); PROTEIN,URINE 30 mg/dL (NEGATIVE); UROBILINOGEN,URINE NEGATIVE mg/dL (<2.0)
[2019-12-13 18:43] LABS: URINE AMPHETAMINES SCREEN NEGATIVE; URINE BARBITURATES SCREEN NEGATIVE; URINE BENZODIAZEPINES SCREEN NEGATIVE; URINE COCAINE SCREEN NEGATIVE; URINE MARIJUANA (THC) SCREEN NEGATIVE; URINE METHADONE SCREEN NEGATIVE; URINE PHENCYCLIDINE SCREEN NEGATIVE
[2019-12-13 19:45] LABS: CHLAM PCR NOT DETECTED (NOT DETECT)
== END 2019-12-13 20:25 | disposition home or self-care (01) ==
LOC: LC 17:19
PROVIDERS: ATTEND Student in an Organized Health Care Education/Training Program
DX: Z34.83 Encounter for supervision of other normal pregnancy, third trimester (principal); Z3A.35 35 weeks gestation of pregnancy; Z91.018 Allergy to other foods; Z88.8 Allergy status to other drugs, medicaments and biological substances
CPT/HCPCS: 59025; 80307; 81001; 87086; 87210; 87491; 87591

== ENCOUNTER 2019-12-30 07:33 | Outpatient (CLI) | payer OTHER ==
--- NOTE | 2019-12-30 07:38 | Non Stress Test Report ---
Non Stress Test Datetime Report Generated by CPN: 12/30/2019 07:38 DEMOGRAPHIC EGA NST: 35.1 INDICATION Indication for Study (NST) Other: IUP at 35.1 VITAL SIGNS Temperature - NST: 98.8 Pulse - NST: 100 RESP - NST: 18 NBPSYS NST: 92 NBPDIA NST: 53 MONITORING Monitor Explained: Monitor Explained; Test Explained; Patient Verbalized Understanding Time on Monitor: 12/13/2019 17:34 Time off Monitor: 12/13/2019 19:48 NST Duration: 134 NST INTERVENTIONS NST Interventions: PO Hydration Physician Notified NST: dr mcrae BABY A: [id number] BABY A Movement : Present Contraction Frequency : Irritability FHR Baseline : 135 Accelerations : 15X15 Decelerations : None Variability : Moderate 6-25bpm NST Review: Meets Criteria for Reactive NST NST Review and Verified By : Schuyler Ng RN Results: Reactive NST REPORT Report Trigger: Send Report
[2019-12-30 08:59] LABS: APPEARANCE,URINE CLOUDY; BILIRUBIN,URINE NEGATIVE (NEGATIVE); COLOR,URINE YELLOW; GLUCOSE, URINE NEGATIVE (NEGATIVE); KETONES,URINE NEGATIVE (NEGATIVE); LEUKOCYTE ESTERASE,URINE LARGE (NEGATIVE); NITRITE,URINE NEGATIVE (NEGATIVE); PROTEIN,URINE NEGATIVE (NEGATIVE); URINE SPECIFIC GRAVITY 1.005; UROBILINOGEN,URINE NEGATIVE mg/dL (<2.0)
[2019-12-30 09:27] LABS: URINE AMPHETAMINES SCREEN NEGATIVE; URINE BARBITURATES SCREEN NEGATIVE; URINE BENZODIAZEPINES SCREEN NEGATIVE; URINE COCAINE SCREEN NEGATIVE; URINE MARIJUANA (THC) SCREEN NEGATIVE; URINE METHADONE SCREEN NEGATIVE; URINE PHENCYCLIDINE SCREEN NEGATIVE
--- NOTE | 2019-12-30 10:08 | Non Stress Test Report ---
Non Stress Test Datetime Report Generated by CPN: 12/30/2019 10:08 DEMOGRAPHIC Test Number: 2 EGA NST: 37.4 INDICATION Indication for Study (NST) Other: labor check VITAL SIGNS Temperature - NST: 98.0 Pulse - NST: 83 RESP - NST: 16 NBPSYS NST: 108 MONITORING Monitor Explained: Monitor Explained; Test Explained; Patient Verbalized Understanding Time on Monitor: 12/30/2019 07:50 Time off Monitor: 12/30/2019 09:46 NST Duration: 116 NST INTERVENTIONS Physician Notified NST: N Chambers BABY A Movement : Present Contraction Frequency : 7-8 FHR Baseline : 135 Accelerations : 15X15 Decelerations : None Variability : Moderate 6-25bpm NST Review: Meets Criteria for Reactive NST NST Review and Verified By : Emily Ta RN NST Results: Reactive NST REPORT Report Trigger: Send Report
== END 2019-12-30 09:56 | disposition home or self-care (01) ==
LOC: LC 07:33
PROVIDERS: ATTEND Obstetrics & Gynecology
DX: Z34.93 Encounter for supervision of normal pregnancy, unspecified, third trimester (principal)
CPT/HCPCS: 80307; 81005; 87086

== ENCOUNTER 2020-01-12 04:48 | Inpatient (IN) | payer OTHER ==
[2020-01-12] MEDS ORDERED: MISOPROSTOL 0.2 MG TABLET ONE (05:02)
[2020-01-12] MEDS ORDERED: OXYTOCIN/0.9 % SODIUM CHLORIDE 30 UNIT/500 ML RTUINJ ONE (05:02)
[2020-01-12] MEDS ORDERED: LIDOCAINE 1% INJ-PF (10 MG/ML) 30 ML SDV ONE (05:02)
[2020-01-12] MEDS ORDERED: ACETAMINOPHEN WITH CODEINE #3 TABLET ONE (05:35)
[2020-01-12] MEDS ORDERED: IBUPROFEN 800 MG TABLET ONE (05:36)
--- NOTE | 2020-01-12 05:44 | Admission Physical ---
Datetime Report Generated by CPN: 01/12/2020 05:43 CURRENT ADMISSION Chief Complaint: Uterine Contractions; Suspected Ruptured Membranes Indication for Induction: Not Applicable Admit Impression : Term, Intrauterine ; Active Labor; Ruptured Membranes Admit Plan: Admit to Unit; Initiate Labor Protocol ALLERGIES Medication Allergies: Yes Medication Allergies: Clinton And Derivatives/AR (12/30/2019); diphenhydramine/SV/Hives (12/30/2019) Latex: No Latex Allergies OBSTETRICAL HISTORY EDC: 01/16/2020 00:00 : 3 Para: 1 Term: 1 : 0 SAB: 1 IAB: 0 Ectopic: 0 Livin Cesareans: 0 VBACs: 0 Multiple Births: 0 SEE RECORDS Alcohol: No Marijuana : No Cocaine: No Other Illicit Drugs: No Cigarettes: Current Everyday Smoker. [id number] PHYSICAL EXAM General: Normal HEENT: Normal Neurologic: Normal Thyroid: Normal Heart: Normal Lungs: Normal Breast: Normal Back: Normal Abdomen: Normal Genitourinary Exam: Normal Extremities: Normal DTRs: Normal Pelvic Type: Adequate Vital Signs: Reviewed FETUS A EGA: 39.3 Monitoring: External US FHR- Baseline: 130 Variability: Moderate 6-25bpm Accelerations: 15X15 Decelerations: Variable FHR Category: Category II Estimated Weight (gm): 4000 Presentation: Vertex Admit Comment: delivered within 30 min of arrival to unit PLANS FOR LABOR AND DELIVERY Feeding Preference: Breast Benefit of Breast Feed Discussed: Yes INFORMED CONSENT Signature: with User ID: [email or web address]
[2020-01-12 05:51] LABS: ABSOLUTE EOSINOPHILS # (AUTO) 0.3 10^3/uL (0.0-0.6); ABSOLUTE LYMPHOCYTES (AUTO) 2.9 10^3/uL (0.5-4.7); ABSOLUTE MONOCYTES (AUTO) 1.2 10^3/uL (0.1-1.4); ABSOLUTE NEUT (AUTO) 10.4 10^3/uL (1.7-8.2); BASOPHILS % (AUTO) 0.3 % (0-2); EOSINOPHILS % (AUTO) 1.8 % (0-6); HEMATOCRIT 32.8 % (36.0-47.0); HEMOGLOBIN 10.8 g/dL (12.0-15.5); LYMPHOCYTES % (AUTO) 19.6 % (13-45); MEAN CORPUSCULAR HEMOGLOBIN 28.8 pg (27.0-33.4); MEAN CORPUSCULAR VOLUME 87 fl (80-97); MONOCYTES % (AUTO) 8.4 % (3-13); PLATELET COUNT 333 10^3/uL (150-450); RED BLOOD COUNT 3.76 10^6/uL (3.72-5.28); SEGMENTED NEUTROPHILS % (AUTO) 69.9 % (42-78); TOTAL CELLS COUNTED % (AUTO) 100 %; WHITE BLOOD COUNT 14.8 10^3/uL (4.0-10.5)
[2020-01-12 05:59] LABS: APPEARANCE,URINE SLIGHTLY-CLOUDY; BILIRUBIN,URINE NEGATIVE (NEGATIVE); COLOR,URINE STRAW; GLUCOSE, URINE NEGATIVE (NEGATIVE); KETONES,URINE NEGATIVE (NEGATIVE); LEUKOCYTE ESTERASE,URINE TRACE (NEGATIVE); NITRITE,URINE NEGATIVE (NEGATIVE); PROTEIN,URINE NEGATIVE (NEGATIVE); URINE SPECIFIC GRAVITY 1.004; UROBILINOGEN,URINE NEGATIVE mg/dL (<2.0)
[2020-01-12 06:21] LABS: URINE AMPHETAMINES SCREEN NEGATIVE; URINE BARBITURATES SCREEN NEGATIVE; URINE BENZODIAZEPINES SCREEN NEGATIVE; URINE COCAINE SCREEN NEGATIVE; URINE MARIJUANA (THC) SCREEN NEGATIVE; URINE METHADONE SCREEN NEGATIVE; URINE PHENCYCLIDINE SCREEN NEGATIVE
--- NOTE | 2020-01-12 07:12 | Warning Signs in Babies ---
VOD Warning Signs Datetime Report Generated by [facility]: 01/12/2020 07:12 VOD#[id number] -Warning Signs in Babies: Viewed with Parent(s)/Family (01/12/2020 07:11:Kajal Ta RN)
--- NOTE | 2020-01-12 07:31 | Delivery Summary ---
Del Sum A-C Datetime Report Generated by CPN: 01/12/2020 07:31 DELIVERY PERSONNEL DELIVERY PERSONNEL: [id number] Delivery Doctor:: Patricia Liu MD Labor and Delivery Nurse:: Morelia Ng RN Labor and Delivery Nurse:: Dot Vila RN Nursery Nurse:: Stefanie Garcia RN Volumetric Weigher/MEETING MANAGER: Marva Arias, GAMB CUTTER MATERNAL INFORMATION Delivery Anesthesia: None Medications After Delivery: Pitocin 30 Units in 500ml NS/D5W Estimated Blood Loss (ml): 200 Delivery QBL: 150 Maternal Complications: Precipitous Labor (<3hrs) LABOR SUMMARY EDC: 01/16/2020 00:00 No. Babies in Womb: 1 Attempted: No Labor Anesthesia: None LABOR INFORMATION Reason for Induction: Not Applicable Onset of Labor: 01/12/2020 04:30 Complete Dilatation: 01/12/2020 05:06 Oxytocin: N/A Group B Beta Strep: NEGATIVE Antibiotics # of Doses: 0 Name of Antibiotic Given: N/A Steroids Given: None Reason Steroids Not Administered: Not Applicable MEMBRANES Membranes Rupture Method: Spontaneous Rupture of Membranes: 01/12/2020 04:57 Length of Rupture (hr): 0.38 Amniotic Fluid Color: Light Meconium Amniotic Fluid Amount: Small STAGES OF LABOR Stage 1 hr: 0 Stage 1 min: 36 Stage 2 hr: 0 Stage 2 min: 14 Stage 3 hr: 0 Stage 3 min: 4 Total Time in Labor hr: 0 Total Time in Labor min: 54 VAGINAL DELIVERY Episiotomy: None Laceration #1: Vaginal Laceration Extension #1: First Degree Laceration Repair: Yes Laceration Repair Note: 2-0 chromic repair figure of eight CSECTION DELIVERY Primary Indication: N/A Secondary Indication: N/A CSection Incidence: N/A Labor: N/A Elective: N/A CSection Incision: N/A BABY A INFORMATION Delivery Date/Time: 01/12/2020 05:20 Method of Delivery: Vaginal Nurse Controlled Delivery: No Born in Route : No : N/A Forceps: N/A Vacuum Extraction: N/A Shoulder Dystocia : No PRESENTATION/POSITION BABY A Presentation: Cephalic Cephalic Presentation: Vertex Breech Presentation: N/A PLACENTA INFORMATION BABY A Placenta Delivery Time : 01/12/2020 05:24 Placenta Method of Delivery: Spontaneous Placenta Status: Delivered SCORES BABY A Heart Rate 1 min: >100 bpm Resp Effort 1 min: Good Cry Reflex Irritability 1 min: Cough or Sneeze or Pulls Away Muscle Tone 1 min: Active Motion Color 1 min: Blue/Pale Resuscitation Effort 1 min: Tactile Stimulation SCORE 1 MIN: 8 Heart Rate 5 min: >100 bpm Resp Effort 5 min: Good Cry Reflex Irritability 5 min: Cough or Sneeze or Pulls Away Muscle Tone 5 min: Active Motion Color 5 min: Body [employer]year, Extremities Blue Resuscitation Effort 5 min: Tactile Stimulation SCORE 5 MIN: 9 INFANT INFORMATION BABY A Gestational Age at Delivery: 39.3 Gestational Status: Full Term- 39- 40.6 Weeks Outcome : Liveborn Condition : Stable Sex: Male IDENTIFICATION BABY A Verification Date/Time: 01/12/2020 05:34 ID Band Number: [id number] Mother's Name Verified: Yes RN Verifying Infant: B. Ring and A. Carterman CORD INFORMATION BABY A No. Cord Vessels: 3 Nuchal Cord : N/A Cord Blood Taken: Yes-For Eval (Mom's Blood Type - or O+) ASSESSMENT BABY A Complications: Multiple Variable Decels; Meconium Physical Findings at Delivery: Within Normal Limits Physical Findings- Other: See full nursery scratcher tender Infant Respirations: Appears Normal Skin to Skin: Yes Skin to Skin Time (min): 5 Mechanical Ordnance Assembler/ALS Called : No Infant Care By: Maddison Garcia RN Transferred To: Remains with Mother BABY B INFORMATION : N/A SIGNATURES Signature: with User ID: [email or web address]
--- NOTE | 2020-01-12 07:31 | Birth Certificate Data ---
Cert Data Datetime Report Generated by CPN: 01/12/2020 07:31 CERTIFICATE DATA 47a. Care: No (12/13/2019 17:35:Dot Vila RN) 47b. Date of First Visit: 09/02/2019 00:00 (12/13/2019 17:35:Lewis Pollard RN) 47c. Date of Last Visit: 01/06/2020 00:00 (12/13/2019 17:35:Lewis Pollard RN) 47d. Number of Visits: 7 (12/13/2019 17:35:Lewis Pollard RN) 48a. Number of Prev Live Births: 1 (12/13/2019 17:35:LEON Lin) 48b. Now Livin (12/13/2019 17:35:Petra Lang RN) 48c. Live Births Now : 0 (12/13/2019 17:35:QS system process) 48d. Date of Last Live : 01/17/2018 00:00 (12/13/2019 17:35:Dot Vila RN) 48e. Losses: 1 (12/13/2019 17:35:Lewis Pollard RN) 48f. Date of Last Preg Loss: 01/06/2017 00:00 (12/13/2019 17:35:Dot Vila RN) RISK FACTORS IN THIS 49a. Diabetes: No (12/13/2019 17:35:Morelia Ng RN) 49b. Hypertension: No (12/13/2019 17:35:Morelia Ng RN) 49c. Previous Births: 0 (12/13/2019 17:35:Petra Lang RN) 49d. Stillborns: No (12/13/2019 17:35:Dot Vila RN) 49d. IUGR: No (12/13/2019 17:35:Morelia Ng RN) 49e. Infertility Treatment: No (12/13/2019 17:35:Morelia Ng RN) 49f. Previous Cesareans: 0 (12/13/2019 17:35:LEON Lin) Mother's Height 50b. Height Inches: 67 (12/30/2019 07:46:QS system process) Mother's Weight 51a. Pre- Weight (lbs): 133 (12/13/2019 17:35:Lewis Pollard RN) 51b. Weight at Delivery (lbs): 167 (12/30/2019 07:46:QS system process) 52. Dt Last Normal Menses Began: 04/11/2019 00:00 (12/13/2019 17:35:Lewis Pollard RN) Infections Present/Treated 53a. Gonorrhea: Yes (12/13/2019 17:35:Dot Vila RN) Results this Hospital Visit : Negative (12/13/2019 17:35:Lewis Pollard RN) 53b. Syphilis: No (12/13/2019 17:35:Dot Vila RN) 53c. Chlamydia: Yes (12/13/2019 17:35:Dot Vila RN) Results this Hospital Visit: Negative (12/13/2019 17:35:Lewis Pollard RN) 53d. Hepatitis B: No (12/13/2019 17:35:Dot Vila RN) Results this Hospital Visit: Negative (12/13/2019 17:35:Morelia Ng RN) 53h. Mother Tested for HBsAG: Yes (12/13/2019 17:35:Dot Vila RN) 53i. Date Tested: 01/12/2020 00:00 (12/13/2019 17:35:Dot Vila RN) 53j. Test Result: Negative (12/13/2019 17:35:Morelia Ng RN) Obstetric Procedures 54a, b, c. Obstetric Procedures: Ultrasound (12/13/2019 17:35:Dot Vila RN) Onset of Labor 56a. PROM >12 Hrs: 0.38 (12/13/2019 17:35:QS system process) 56b. Precipitous Labor <3 Hrs: 0 (12/13/2019 17:35:QS system process) 56c. Prolonged Labor > 20 Hrs: 0 (12/13/2019 17:35:QS system process) 57a. Induction of Labor: N/A (12/13/2019 17:35:Dot Vila RN) 57c. Non-Vertex Presentation A: Vertex (12/13/2019 17:35:Dot Vila RN) 57d. Steroids - Lung Mat: None (12/13/2019 17:35:Dot Vila RN) 57d. Steroids - Lung Mat: Not Applicable (12/13/2019 17:35:Patricia Liu MD ([facility])) 57g. Moderate/Heavy Meconium: Light Meconium (01/12/2020 04:57:Dot Vila RN) 57h. Intolerance of Labor: N/A (12/13/2019 17:35:Dot Vila RN) : N/A (12/13/2019 17:35:Dot Vila RN) 57i. Epidural/Spinal Anesthesia: None (12/13/2019 17:35:Dot Vila RN) Method of Delivery 58a. Forceps - Unsuccessful A: N/A (12/13/2019 17:35:Dot Ring, RN) 58b. Vacuum - Unsuccessful A: N/A (12/13/2019 17:35:Dot Ring, RN) 58c. Presentation at 58c. Presentation at - A : Vertex (12/13/2019 17:35:Dot Ring, RN) 58c. Presentation at - A : N/A (12/13/2019 17:35:Dot Ring, RN) 58c. Presentation at - A : Cephalic (12/30/2019 07:53:Savannah Carney RN) Final Route and Method of Del 58d. Baby A Route/Delivery: Vaginal (01/12/2020 05:20:Dot Ring, RN) 58e. Trial of Labor Attempted: No (12/13/2019 17:35:Dot Ring, RN) 58e. Trial of Labor Attempted A: N/A (12/13/2019 17:35:Dot Ring, RN) 58e. Trial of Labor Attempted B: N/A (12/13/2019 17:35:Dot Ring, RN) Maternal Morbidity 59b. 3rd or 4th Degree Lacs: Vaginal (12/13/2019 17:35:Patriciaclaribel Liu, ([facility])) 61. GA at Delivery Baby A: 39.3 (12/13/2019 17:35:Dot Ring, RN) : Full Term- 39- 40.6 Weeks (12/13/2019 17:35:QS system process) 62a. 5 Minute Baby A: 9 (12/13/2019 17:35:QS system process)
[2020-01-12] MEDS ORDERED: DIPH/PERTUSS(ACELL)/TETANUS VAC/PF 0.5 ML SYR (>=10YO) IM PRN (09:42)
[2020-01-12] MEDS ORDERED: NA PHOS,M-B/NA PHOS,DI-BA (ADULT) 133 ML ENEMA PR PRN (09:42)
[2020-01-12] MEDS ORDERED: GLYCERIN/WITCH HAZEL LEAF 1 EACH MED..WIPE TP PRN (09:42)
[2020-01-12] MEDS ORDERED: ACETAMINOPHEN WITH CODEINE #3 TABLET PO PRN (09:42)
[2020-01-12] MEDS ORDERED: DIBUCAINE 1% OINTMENT 28 GM TP PRN (09:42)
[2020-01-12] MEDS ORDERED: PROMETHAZINE HCL 25 MG SUPP.RECT PR PRN (09:42)
[2020-01-12] MEDS ORDERED: BENZOCAINE/MENTHOL AEROSOL SPRAY 56 ML TOP PRN (09:42)
[2020-01-12] MEDS ORDERED: OXYTOCIN/0.9 % SODIUM CHLORIDE 30 UNIT/500 ML RTUINJ IV PRN (09:42)
[2020-01-12] MEDS ORDERED: PROMETHAZINE HCL INJ 25 MG/1 ML VIAL IV PRN (09:42)
[2020-01-12] MEDS ORDERED: PROMETHAZINE HCL 25 MG TABLET PO PRN (09:42)
[2020-01-12] MEDS ORDERED: MEASLES,MUMPS&RUBELLA VACC/PF 0.5 ML VIAL SUBCUT PRN (09:42)
[2020-01-12] MEDS ORDERED: ACETAMINOPHEN 650 MG SUPP.RECT PR PRN (09:42)
[2020-01-12] MEDS ORDERED: ZOLPIDEM TARTRATE 5 MG TABLET PO PRN (09:42)
[2020-01-12] MEDS ORDERED: PSEUDOEPHEDRINE HCL 30 MG TABLET PO PRN (09:42)
[2020-01-12] MEDS: SENNOSIDES/DOCUSATE 8.6-50 MG 1 EACH TABLET PO SCH (10:25)
[2020-01-12] MEDS: FERROUS SULFATE 325 MG TABLET PO SCH ×2 (10:25→17:50)
[2020-01-12] MEDS: FAMOTIDINE 20 MG TABLET PO SCH ×2 (10:25→21:30)
[2020-01-12] MEDS: PRENATAL VITAMIN W DHA CAPSULE PO SCH (10:25)
[2020-01-12] MEDS: DOCUSATE SODIUM 100 MG CAPSULE PO SCH ×2 (10:25→17:50)
[2020-01-12] MEDS ORDERED: SUCCINYLCHOLINE CHLORIDE INJ 200 MG/10 ML VIAL ONE (13:00)
[2020-01-12] MEDS: IBUPROFEN 800 MG TABLET PO SCH ×2 (13:57→21:30)
[2020-01-13] MEDS: IBUPROFEN 800 MG TABLET PO SCH ×3 (05:10→21:14)
[2020-01-13 07:15] LABS: HEMATOCRIT 29.7 % (36.0-47.0); HEMOGLOBIN 9.8 g/dL (12.0-15.5); MEAN CORPUSCULAR HGB CONC 33.2 g/dL (32.0-36.0); MEAN CORPUSCULAR VOLUME 87 fl (80-97); PLATELET COUNT 275 10^3/uL (150-450); RED CELL DISTRIBUTION WIDTH 13.8 % (11.5-14.0); WHITE BLOOD COUNT 14.4 10^3/uL (4.0-10.5)
[2020-01-13] MEDS: FAMOTIDINE 20 MG TABLET PO SCH ×2 (09:31→21:14)
[2020-01-13] MEDS: PRENATAL VITAMIN W DHA CAPSULE PO SCH (09:31)
[2020-01-13] MEDS: FERROUS SULFATE 325 MG TABLET PO SCH ×2 (09:31→17:23)
[2020-01-13] MEDS: SENNOSIDES/DOCUSATE 8.6-50 MG 1 EACH TABLET PO SCH (09:31)
[2020-01-13] MEDS: DOCUSATE SODIUM 100 MG CAPSULE PO SCH ×2 (09:31→17:23)
--- NOTE | 2020-01-13 10:02 | PDOC PROGRESS REPORT ---
Subjective-OB Progress Note for:: 01/13/20 Subjective: reports bleeding slowing, pain controlled with current meds. denies needs Physical Exam (OB) Vital Signs: Temp Pulse Resp BP Pulse Ox 97.8 F 56 L 16 103/45 L 99 01/13/20 08:44 01/13/20 08:00 01/13/20 08:00 01/13/20 08:00 01/13/20 08:00 Intake & Output 01/12/20 01/13/20 01/14/20 06:59 06:59 06:59 Weight 78.471 kg - Maternal Morbidity 59. Maternal Morbidity (serious complications experinced by the mother associated with labor and delivery: None of the above - Abdomen Description: Soft, Round Hernia Present: No Fundal Description: Firm, Midline Fundal Height: u/u - u/2 - Abdominal Distension: No distension Tenderness: Nontender - Extremities Lower extremities: Bren's sign - neg Calf: Normal, Nontender Objective-Diagnostic Laboratory: 01/13/20 07:02 01/13/20 07:02 WBC 14.4 H RBC 3.40 L Hgb 9.8 L Hct 29.7 L MCV 87 MCH 29.0 MCHC 33.2 RDW 13.8 Plt Count 275 Assessment and Plan(PN) - Assessment and Plan (1) Vaginal delivery Is this a current diagnosis for this admission?: Yes - Time Spent with Patient Time with patient: Less than 15 minutes - Disposition Anticipated Discharge Disposition: Home, Self Care Anticipated Discharge Timeframe: within 24 hours
[2020-01-14] MEDS: IBUPROFEN 800 MG TABLET PO SCH (05:04)
[2020-01-14 07:53] VITALS: BP 110/60
[2020-01-14] MEDS: SENNOSIDES/DOCUSATE 8.6-50 MG 1 EACH TABLET PO SCH (09:02)
[2020-01-14] MEDS: FAMOTIDINE 20 MG TABLET PO SCH (09:02)
[2020-01-14] MEDS: PRENATAL VITAMIN W DHA CAPSULE PO SCH (09:02)
[2020-01-14] MEDS: DOCUSATE SODIUM 100 MG CAPSULE PO SCH (09:02)
[2020-01-14] MEDS: FERROUS SULFATE 325 MG TABLET PO SCH (09:02)
--- NOTE | 2020-01-14 09:08 | PDOC DISCHARGE SUMMARY ---
Impression - Admit/DC Date/PCP Admission Date/Primary Care Provider: 01/12/20 05:03 URBAN EUGENE MD Discharge Date: 01/14/20 - PP Day #2, doing well, O+, Rubella immune, , UOB, voiding - Discharge Diagnosis (1) Anemia, Is this a current diagnosis for this admission?: Yes (2) Cannabis abuse Is this a current diagnosis for this admission?: Yes (3) Premature rupture of membranes Is this a current diagnosis for this admission?: Yes (4) Vaginal delivery Is this a current diagnosis for this admission?: Yes - Additional Information Resuscitation Status: Full Code Discharge Diet: As Tolerated, Regular Discharge Activity: Activity As Tolerated, No Lifting Over 10 Pounds, Pelvic Rest Referrals: URBAN EUGENE MD [Primary Care Provider] - (Follow up in 4 weeks for your post evaluation. Call the office and make an appointment. ) Prescriptions: Ferrous Sulfate [Feosol 325 mg Tablet] 325 mg PO DAILY #30 tablet Ibuprofen [Motrin 800 mg Tablet] 800 mg PO Q8 #60 tablet Home Medications: Ferrous Sulfate [Feosol 325 mg Tablet] 325 mg PO DAILY #30 tablet 01/14/20 Ibuprofen [Motrin 800 mg Tablet] 800 mg PO Q8 #60 tablet 01/14/20 Vit/Dha [ Multi + Dha Capsule] 1 cap PO DAILY capsule 01/14/20 HPI Reason(s) for Admission: Onset of Labor Procedures: Ultrasound Intrapartum Procedure(s): Spontaneous Vaginal Delivery Complication(s): Laceration-Vaginal Laceration-Degree: 1st Hospital Course 59. Maternal Morbidity (serious complications experinced by the mother associated with labor and delivery: None of the above Results Laboratory Results: WBC 14.4 10^3/uL (4.0-10.5) H 01/13/20 07:02 RBC 3.40 10^6/uL (3.72-5.28) L 01/13/20 07:02 Hgb 9.8 g/dL (12.0-15.5) L 01/13/20 07:02 Hct 29.7 % (36.0-47.0) L 01/13/20 07:02 MCV 87 fl (80-97) 01/13/20 07:02 MCH 29.0 pg (27.0-33.4) 01/13/20 07:02 MCHC 33.2 g/dL (32.0-36.0) 01/13/20 07:02 RDW 13.8 % (11.5-14.0) 01/13/20 07:02 Plt Count 275 10^3/uL (150-450) 01/13/20 07:02 Lymph % (Auto) 19.6 % (13-45) 01/12/20 05:37 [place] % (Auto) 8.4 % (3-13) 01/12/20 05:37 Eos % (Auto) 1.8 % (0-6) 01/12/20 05:37 Baso % (Auto) 0.3 % (0-2) 01/12/20 05:37 Absolute Neuts (auto) 10.4 10^3/uL (1.7-8.2) H 01/12/20 05:37 Absolute Lymphs (auto) 2.9 10^3/uL (0.5-4.7) 01/12/20 05:37 Absolute Monos (auto) 1.2 10^3/uL (0.1-1.4) 01/12/20 05:37 Absolute Eos (auto) 0.3 10^3/uL (0.0-0.6) 01/12/20 05:37 Absolute Basos (auto) 0.0 10^3/uL (0.0-0.2) 01/12/20 05:37 Seg Neutrophils % 69.9 % (42-78) 01/12/20 05:37 Urine Color STRAW 01/12/20 05:00 Urine Appearance SLIGHTLY-CLOUDY 01/12/20 05:00 Urine pH 7.0 (5.0-9.0) 01/12/20 05:00 Ur Specific [place] 1.004 01/12/20 05:00 Urine Protein NEGATIVE mg/dL (NEGATIVE) 01/12/20 05:00 Urine Glucose (UA) NEGATIVE mg/dL (NEGATIVE) 01/12/20 05:00 Urine Ketones NEGATIVE mg/dL (NEGATIVE) 01/12/20 05:00 Urine Blood MODERATE (NEGATIVE) H 01/12/20 05:00 Urine Nitrite NEGATIVE (NEGATIVE) 01/12/20 05:00 Urine Bilirubin NEGATIVE (NEGATIVE) 01/12/20 05:00 Urine Urobilinogen NEGATIVE mg/dL (<2.0) 01/12/20 05:00 Ur Leukocyte Esterase TRACE (NEGATIVE) H 01/12/20 05:00 Urine Ascorbic Acid NEGATIVE (NEGATIVE) 01/12/20 05:00 Urine Opiates Screen NEGATIVE 01/12/20 05:00 Urine Methadone Screen NEGATIVE 01/12/20 05:00 Ur Barbiturates Screen NEGATIVE 01/12/20 05:00 Ur Phencyclidine Scrn NEGATIVE 01/12/20 05:00 Ur Amphetamines Screen NEGATIVE 01/12/20 05:00 U Benzodiazepines Scrn NEGATIVE 01/12/20 05:00 Urine Cocaine Screen NEGATIVE 01/12/20 05:00 U Marijuana (THC) Screen NEGATIVE 01/12/20 05:00 RPR NONREACTIVE (NONREACTIVE) 01/12/20 05:37 Rubella IgG Antibody 27.80 IU/mL 01/12/20 05:37 Rubella IgG Ab Interp POSITIVE 01/12/20 05:37 Blood Type O POSITIVE 01/12/20 05:37 Antibody Screen NEGATIVE 01/12/20 05:37 Plan Plan of Treatment: d/c home, f/up with [facility] in 4 wks for PP check Time Spent: Less than 30 Minutes
[2020-01-14 10:36] LABS: HEPATITIS C VIRUS AB 0.1 s/co ratio (0.0-0.9)
[2020-01-14 10:57] LABS: HEPATITS B SURFACE ANTIGEN Negative (Negative)
== END 2020-01-14 12:45 | disposition home or self-care (01) | DRG 807 ==
LOC: LC 04:48 → LR 05:03 → 2S 07:56
PROVIDERS: ADMIT Obstetrics & Gynecology; ATTEND Obstetrics & Gynecology
PROC: 10E0XZZ Delivery of Products of Conception, External Approach (ICD-10-PCS; principal; 2020-01-12)
PROC: 0HQ9XZZ Repair Perineum Skin, External Approach (ICD-10-PCS; 2020-01-12)
DX: O99.324 Drug use complicating childbirth (principal); Z37.0 Single live birth; F12.10 Cannabis abuse, uncomplicated; O90.81 Anemia of the puerperium; D64.9 Anemia, unspecified; O70.0 First degree perineal laceration during delivery; O99.334 Smoking (tobacco) complicating childbirth; F17.210 Nicotine dependence, cigarettes, uncomplicated; O62.3 Precipitate labor; Z88.8 Allergy status to other drugs, medicaments and biological substances; Z91.018 Allergy to other foods; Z3A.39 39 weeks gestation of pregnancy
CPT/HCPCS: 36415; 80307; 81005; 85025; 85027; 86592; 86762; 86803; 86804; 86850; 86900; 86901; 87340; J0330; J2590; J3490